=== PATIENT | male | born 1945 | race African-American/Black ===

== ENCOUNTER 2017-10-15 21:14 | Observation (INO) | payer MEDICARE, MEDICAID ==
--- NOTE | 2017-10-15 21:54 | CT ---
NONCONTRAST CT HEAD 10/15/17 HISTORY: Slurred speech. COMPARISON: 02/03/17 FINDINGS: Again noted is stable area of encephalomalacia in the left frontal lobe, left parieto-occipital lobe, and left deep white matter near the vertex likely related to remote areas of infarction. Again noted is the low density area within the right lentiform nucleus likely related to remote lacunar infarcti on. Small remote infarctions are also again seen within the left cerebellar hemisphere. There is stable chronic small vessel ischemic changes and cerebral volume loss. There is no evidence of an acute cortical infarction, hemorrhage, mass effect, or midline shift. There is no evidence of h ydrocephalus. There does appear to be mild ex vacuo dilatation of the body and occipital horn as well as anterior horn of the left lateral ventricle due to the remote areas of infarction in the left cer ebral hemisphere. No intraparenchymal or extra-axial hemorrhage is seen. There is no mass effect or midline shift. Ther e has been no interval change compared to the prior exam. IMPRESSION: 1. No acute intracranial abnormalities demonstrated. 2. Evidence of multiple prior infarcts as described above. CT scan of the head is stable from th e prior exam. 3. Above findings discussed with Dr. Cortes in the Emergency Department on 10/15/17 at 2122 hour s. POS: [facility]
[2017-10-15 21:59] LABS: PTT 28.7 SEC (22.9-36.1); Prothrombin Time 13.5 SEC (12.0-14.7)
[2017-10-15 22:01] LABS: #Basophils 0.1 thou/uL (0.0-0.2); #Eosinphils 0.3 thou/uL (0.0-0.7); #Lymphocytes 1.8 thou/uL (1.20-3.40); #Monocytes 0.6 thou/uL (0.11-0.59); #Neutrophils 2.5 thou/uL (1.40-6.50); %Eosinophils 5.7 % (0.0-10.0); %Lymphocytes 34.6 % (21.0-51.0); %Monocytes 10.8 % (0.0-10.0); %Neutrophils 47.9 % (42.0-75.0); Hemoglobin 14.8 g/dL (14.0-18.0); Mean Corpuscular HGB CONC 32.1 g/dL (32.0-36.0); Mean Corpuscular Hemoglobin 31.9 pg (27.0-31.0); Mean Corpuscular Volume 99.3 fl (80.0-94.0); Mean Platelet Volume 8.3 fL (7.4-10.4); Platelet Count 185 thou/uL (130-400); RBC Distribution Width 11.1 % (11.5-14.5); Red Blood Cell (RBC) Count 4.64 mill/uL (4.70-6.10); White Blood Cell (WBC) Count 5.1 thou/uL (4.8-10.8)
[2017-10-15 22:14] LABS: ALT (SGPT) Less than 7 U/L (8-55); AST (SGOT) 13 U/L (5-34); Albumin 3.5 g/dL (3.4-4.8); Alkaline Phosphatase 110 U/L (40-150); Anion Gap 12 mmol/L (10-20); BUN (Urea Nitrogen) 15 mg/dL (8.4-25.7); Bilirubin, Total 0.4 mg/dL (0.2-1.2); CK (CPK) 104 U/L (30-200); Calc. Creatinine Clearance 0 mL/min (70-130); Calcium 9.9 mg/dL (7.8-10.44); Carbon Dioxide 28 mmol/L (23-31); Chloride 104 mmol/L (98-107); Estimated GFR-MDRD 83; Glucose 74 mg/dL (83-110); Potassium 4.5 mmol/L (3.5-5.1); Protein, Total 7.5 g/dL (5.8-8.1); Sodium 139 mmol/L (136-145)
[2017-10-16 00:35] VITALS: BMI 21.9
[2017-10-16] MEDS ORDERED: Labetalol HCl 100 MG/20 ML VIAL SLOW IVP PRN (00:37)
[2017-10-16] MEDS ORDERED: hydrALAZINE 20 MG/ML VIAL SLOW IVP PRN (00:37)
[2017-10-16 01:20] LABS: Lactic Acid 1.5 mmol/L (0.5-2.2)
[2017-10-16 06:08] LABS: Anion Gap 12 mmol/L (10-20); BUN (Urea Nitrogen) 13 mg/dL (8.4-25.7); Calc. Creatinine Clearance 73 mL/min (70-130); Calcium 8.5 mg/dL (7.8-10.44); Carbon Dioxide 24 mmol/L (23-31); Cardiac Risk 3.6 (Less than 4.5); Chloride 105 mmol/L (98-107); Cholesterol 139 mg/dl (< 200 Desired); Estimated GFR-MDRD Greater than 90; Glucose 84 mg/dL (83-110); HDL Cholesterol 39 mg/dL (>60 Neg Risk); LDL Cholesterol, Calculated 74 mg/dL; Potassium 3.9 mmol/L (3.5-5.1); Sodium 137 mmol/L (136-145); Triglycerides 131 mg/dL (Less than 150)
--- NOTE | 2017-10-16 06:25 | HP-2 ---
DATE OF ADMISSION: 10/16/2017 CODE STATUS: DNI ATTENDING: Sadia Trujillo M.D. RESIDENT: Gali Fermin MD HISTORIAN: Self and daughter. CHIEF COMPLAINT: Slurred speech. HISTORY OF PRESENT ILLNESS: This is a 72-year-old male with past medical history of CVA, MA, COPD, w ho presents to the ED with slurred speech. The woman who stays with him says that a little before 9: 00 p.m., he "was not talking right." The patient's daughter also reports that he was not feeling rig ht at that time either. The daughter reports that by the time she saw him in the ED at 11:00 p.m., bonnie arthur was talking like himself. Although, he did appear sleepier than usual to her. He reports that all he remembers is lying down on the couch and the next thing he remembers is being transferred to the ER. He has not had any falls lately. He does report that he has had a bad cold. He denies any rece nt fevers, weakness, numbness, blurry vision, seizures, loss of bowel or bladder control. PAST MEDICAL HISTORY: 1. Cerebrovascular accident. 2. Chronic obstructive pulmonary disease. 3. Myocardial infarction. 4. Congestive heart failure with an ejection fraction of 25%-30%. 5. Seizure with the last one, 1 year ago. PAST SURGICAL HISTORY: None. ALLERGIES: No known drug allergies. MEDICATIONS: 1. Spironolactone 12.5 mg daily. 2. Gabapentin 300 mg b.i.d. 3. Carvedilol 3.125 mg b.i.d. 4. Keppra 500 mg b.i.d. 5. Aspirin 81 mg daily. FAMILY HISTORY: Dad had an MA at an unknown age. SOCIAL HISTORY: Dipped tobacco, quit 3-4 years ago. Denies alcohol or drug use. REVIEW OF SYSTEMS: General: Negative for fever or chills. Positive for fatigue. ENT: Positive fo r rhinorrhea, sore throat. Respiratory: Negative for cough, shortness of breath. Cardiovascular: Negative for chest pain and edema. GI: Negative for nausea, vomiting, abdominal pain. Genitourinar y: Negative for dysuria, polyuria. Skin: Negative for rashes, lesions. Musculoskeletal: Negative for pain or tenderness. Neurologic: Negative for weakness, numbness. PHYSICAL EXAMINATION: VITAL SIGNS: Blood pressure 116/80, pulse 59, respiratory rate 17, temperature 98.0, pulse ox 100% o n room air. Current weight 67.6 kilograms. GENERAL: Drowsy, oriented x2, which is patient's baseline per daughter, in no acute distress, well-n ourished. EYES: PERRLA. Extraocular muscles intact. Conjunctivae within normal limits. ENT: Nasal mucosa and oropharynx within normal limits. Poor dentition. NECK: Supple, no lymphadenopathy, no bruits. CARDIOVASCULAR: Regular rate and rhythm. No murmurs, gallops, 2+ radial and pedal pulses. RESPIRATORY: Normal effort, no retractions, clear to auscultation bilaterally. SKIN: Warm, dry. No cyanosis or lesions. ABDOMEN: Soft, nontender to palpation, normoactive bowel sounds. No mass or distention. EXTREMITIES: No clubbing, cyanosis, or edema. MUSCULOSKELETAL: Structure, tone within normal limits, 5/5 muscle strength. Full range of motion. NEUROLOGICAL: No focal deficits. Sensation within normal limits. Cranial nerves II through XII int act. GCS 15. PSYCHIATRIC: Appropriate. LABORATORY DATA: WBC 5.1, hemoglobin 14.8, hematocrit 46.0, platelets 185. Sodium 139, potassium 4. 5, chloride 104, CO2 28, BUN 13, creatinine 1.06, GFR 83, glucose 74, calcium 9.9, total protein 7.5, albumin 3.5, total bilirubin 0.4, AST 13, ALT less than 7, alkaline phosphatase 110. PT 13.5, INR 1 .0, PTT 28.7. CK 104, CK-MB 2.0, troponin less than 0.01. EKG showed first-degree AV block, left ve ntricular hypertrophy, and ST-T wave changes, predominantly T-wave inversions in the inferior and lat eral leads. He noticed significant change from prior except for some more prominent T-wave inversion in the inferior leads. CT head, no acute abnormality. Evidence of multiple prior infarcts. ASSESSMENT AND PLAN: A 72-year-old male presents with: 1. Transient ischemic attack versus cerebrovascular accident versus seizure. Patient had a negative cerebrovascular accident workup in 01/2017. No need to repeat carotid studies or echo. At this diana e, we will get a brain MRI q.4 neuro checks, aspirin, atorvastatin. Check fasting lipid panel. We w ill check prolactin. Consult the stroke team with PT, OT, and speech. 2. History of seizure disorder. We will continue Keppra. We will check prolactin. The patient cou ld have been postictal, was not really remembering what happened between lying down and being in the ambulance. We will observe. 3. Viral upper respiratory infection. Patient appears drowsy and complaining of upper respiratory s ymptoms. We will treat symptomatically. We will check lactic acid. No white count at this time. 4. Congestive heart failure with an ejection fraction of 25%-30% in 01/2017. We will fluid restrict , continue carvedilol, spironolactone. We will do strict I's and O's and daily weights. 5. Chronic obstructive pulmonary disease, no exacerbation currently. We will give DuoNebs as needed . 6. Chronic kidney disease stage 2, stable. We will monitor. 7. History of myocardial infarction. No chest pain currently. We will continue home medications. 8. History of cerebrovascular accident, past cerebrovascular accident was seen on CT head. We will continue home medications. 9. Deconditioning. The patient walks with a walker per the daughter. We will consult PT, OT. 10. VT prophylaxis. Lovenox. DISPOSITION: Observation on stroke. Symptomatic medication will be provided. History and physical exam as well as management discussed with Dr. Trujillo.
[2017-10-16] MEDS ORDERED: Spironolactone 25 MG TAB PO SCH (08:00)
[2017-10-16] MEDS ORDERED: Enoxaparin Sodium 40 MG/0.4 ML SYRINGE SC SCH (09:00)
[2017-10-16] MEDS ORDERED: Aspirin 81 mg Enteric Coated Tablet PO SCH (09:00)
[2017-10-16] MEDS ORDERED: levETIRAcetam 500 MG TAB PO SCH (09:00)
[2017-10-16] MEDS ORDERED: Gabapentin 300 MG CAP PO SCH (09:00)
--- NOTE | 2017-10-16 09:13 | MRI ---
MRI BRAIN NONCONTRAST: HISTORY: CVA. COMPARISON: 02/04/17. FINDINGS: There is no evidence of acute intracranial hemorrhage or infarct. The old large left parietooccipita l infarct is stable. Diffuse cortical atrophy and chronic ischemic small vessel disease are also sim ilar in appearance to the previous exam. There is no mass effect or shift of midline structures. Sm all area of mucosal thickening in the left ethmoid air cells is stable. IMPRESSION: Large old left parietooccipital infarct and other chronic-type findings are stable. No acute intracr anial abnormalities are demonstrated. POS: [facility]
[2017-10-16] MEDS: Carvedilol 3.125 MG TAB PO SCH ×2 (09:22→17:50)
[2017-10-16 13:35] LABS: Bilirubin Negative (Negative); Blood, Urine Negative (Negative); Clarity CLEAR (Clear); Glucose, Urine (Dipstick) Negative (Negative); Leukocyte Negative (Negative); Nitrite Negative (Negative); Protein, Urine (Dipstick) Negative (Neg-Trace); Specific Gravity, Urine 1.018 (1.002-1.036); pH, Urine 6.5 (5.0-9.0)
[2017-10-16 13:37] LABS: Bacteria/HPF None Seen HPF (None Seen); Hyaline Casts/LPF 0-3 HYALINE CAST LPF (0-3 Hyaline); Squamous Epithelial None Seen HPF (0-3); WBC/HPF 0-3 HPF (0-3)
[2017-10-16 16:20] VITALS: BP 135/73; TEMP 98.8
[2017-10-16] MEDS ORDERED: Atorvastatin Calcium 40 MG TAB PO SCH (21:00)
--- NOTE | 2017-10-17 11:08 | PDOC.EVN ---
Event Note - Event Note Event Note: I personally evaluated the patient and discussed the management with Dr. Fermin on 10/16/17. I agree with the history, exam, assessment and plan as documented. Briefly, this is a 72 yo male with h/o CVA, COPD, seizure d/o and sCHF with EF 20-25% presented with episode of slurred speech and lethargy. Denies any fever/ chills. Denies any MOSHER, visual disturbances. Denies any focal weakness. Denies any bowel/bladder incontinence. Family reports no seizure like activity. On presentation to ER, symptoms had resolved. Patient denies any currently complaints. See resident note for details of PMH/PSH/Meds/All/SH PE: Afebrile BP 116/80 P59 RR 17 Lungs- CTA b/l CV- RRR, no murmur Abd- soft/nt/nd Neuro- CN 2-12 grossly intact; strength 5/5 b/l; light touch intact; speech clear Ext: no edema Labs- CT brain- no acute abnormality EKG- NSR, LVH, T wave inversion inferior and lateral leads- no change from prior EKG Trop I negative Prolactin- normal A/P: 1) Transient slurred speech - will obtain MRI - continue ASA - Possible d/c later today. 2) H/o CVA - had carotid dopplers and echo recently which were normal - continue to monitor
--- NOTE | 2017-11-06 11:07 | DIS-2 ---
DATE OF ADMISSION: 10/15/2017 DATE OF DISCHARGE: 10/16/2017 CO-SIGNER: Dr. Sadia Trujillo. RESIDENT PHYSICIAN: Dr. Riley Abrams. ADMITTING ATTENDING: Dr. Sadia Trujillo. DISCHARGE ATTENDING: Dr. Sadia Trujillo. CONSULTS: None. PROCEDURES: 1. Brain CT done on 10/15/2017 showed no acute intracranial abnormalities. Evidence of multiple bairon or infarcts. CT scan of the head is stable from prior exam. 2. Brain MRI done on 10/16/2017 showed a large old left parietal occipital infarct and the other chr onic type findings, very stable. No acute intracranial abnormalities demonstrated. PRIMARY DIAGNOSIS: Syncope. SECONDARY DIAGNOSES: 1. History of cerebrovascular accident. 2. Seizure disorder. 3. Hypertension. 4. Cardiomyopathy. DISCHARGE MEDICATIONS: 1. Tylenol 500 mg p.o. q.4 hours. 2. Aspirin 325 mg daily. 3. Atorvastatin 80 mg p.o. at bedtime. 4. Coreg 3.125 mg p.o. b.i.d. 5. Gabapentin 300 mg p.o. b.i.d. 6. Keppra 500 mg p.o. b.i.d. 7. Lisinopril 20 mg p.o. b.i.d. 8. Spironolactone 12.5 mg p.o. daily. DISCONTINUED MEDICATIONS: None. HISTORY OF PRESENT ILLNESS AND HOSPITAL COURSE: The patient is a 72-year-old male with a past histor y of CVA, CO, COPD, who came to the ER with slurred speech. A retail worker noted before admission and t he patient was not talking right in between the hours of 9 p.m. when the symptoms began about the diana e he arrived in the ED at 11:00 p.m., the symptoms had resolved. He denied any recent fevers, weakne ss, numbness, blurry vision, seizures, loss of bowel or bladder control. Overall, the patient was ad mitted for possible syncopal episode versus TIA. A workup was found to be negative and the patient w as discharged home with instruction to follow up with the PCP provider. DISPOSITION: Patient left the hospital in stable condition. DISCHARGE INSTRUCTIONS: 1. Location: Home. 2. Diet: Heart healthy. 3. Activity: ad nany. 4. Followup: Follow up with primary care provider in 7-10 days following discharge.
--- NOTE | 2017-11-08 17:34 | EKG ---
Test Reason : Blood Pressure : / mmHG Vent. Rate : 068 BPM Atrial Rate : 068 BPM P-R Int : 224 ms QRS Dur : 092 ms QT Int : 418 ms P-R-T Axes : 097 -54 -46 degrees QTc Int : 444 ms Sinus rhythm with 1st degree A-V block Left axis deviation Voltage criteria for left ventricular hypertrophy Abnormal ECG Confirmed by EDIE ORO ([id number]), design editor JAYLON HODGES ([id number]) on 11/08/2017 5:33:33 PM Referred By: Confirmed By:EDIE ORO
== END 2017-10-16 18:23 | disposition home or self-care (01) ==
LOC: ERS 21:14 → 2SE 10-16 00:01
PROVIDERS: ADMIT Emergency Medicine; ATTEND Emergency Medicine
DX: R47.81 Slurred speech (principal); J44.9 Chronic obstructive pulmonary disease, unspecified; I25.2 Old myocardial infarction; I50.9 Heart failure, unspecified; G40.909 Epilepsy, unspecified, not intractable, without status epilepticus; J06.9 Acute upper respiratory infection, unspecified; N18.2 Chronic kidney disease, stage 2 (mild); R53.81 Other malaise; Z79.82 Long term (current) use of aspirin; Z79.899 Other long term (current) drug therapy; Z87.891 Personal history of nicotine dependence; Z86.73 Personal history of transient ischemic attack (TIA), and cerebral infarction without residual deficits
CPT/HCPCS: 70450; 70551; 80048; 80053; 80061; 80177; 81001; 82550; 82553; 82962; 83605; 84146; 84484; 85025; 85610; 85730; 93005; 96372; 97116; 97139 ×3; 97530; 99285; G0378; G8978; G8979; G8987; G8988; 36415; 36416; G8996-GN-CI; G8997-GN-CI; J1650

== ENCOUNTER 2019-01-08 18:15 | Observation (INO) | payer MEDICARE, MEDICAID ==
--- NOTE | 2019-01-08 18:57 | CT ---
CT head noncontrast HISTORY: Seizure. Syncope. COMPARISON: 10/15/2017. FINDINGS: There is no evidence of acute intracranial hemorrhage or infarct. Old left TOP STEEP TENDER infarct. Dif fuse cortical atrophy and chronic ischemic small vessel disease. Prominent calcification throughout the arterial structures. No mass effect or shift of midline structures. IMPRESSION: Chronic type findings are stable. No acute intracranial abnormalities are demonstrated.
--- NOTE | 2019-01-08 18:58 | RAD ---
Chest one view HISTORY: Dyspnea. COMPARISON: 02/14/2017. FINDINGS: Cardiac silhouette is Identified and enlarged. Pulmonary vasculature upper limits of normal. Hazy opacity over each base on this semiupright portable exam with blunting of each costophrenic angle. No lobar consolidation or evidence of pneumothorax. flight simulator teacher leads overlie the chest. IMPRESSION: Cardiomegaly. Small bilateral pleural effusions.
[2019-01-08 19:17] LABS: #Eosinphils 0.2 thou/uL (0.0-0.7); #Lymphocytes 1.7 thou/uL (1.20-3.40); #Monocytes 0.6 thou/uL (0.11-0.59); #Neutrophils 2.1 thou/uL (1.40-6.50); %Basophils 0.2 % (0.0-1.0); %Eosinophils 4.8 % (0.0-10.0); %Lymphocytes 36.3 % (21.0-51.0); %Monocytes 13.5 % (0.0-10.0); %Neutrophils 45.2 % (42.0-75.0); Hemoglobin 12.9 g/dL (14.0-18.0); Mean Corpuscular Hemoglobin 31.6 pg (27.0-31.0); Mean Corpuscular Volume 98.8 fL (78.0-98.0); Mean Platelet Volume 8.5 fL (7.4-10.4); Platelet Count 157 thou/uL (130-400); RBC Distribution Width 11.8 % (11.5-14.5); Red Blood Cell (RBC) Count 4.07 mill/uL (4.70-6.10); White Blood Cell (WBC) Count 4.6 thou/uL (4.8-10.8)
[2019-01-08 19:32] LABS: ALT (SGPT) 8 U/L (8-55); AST (SGOT) 14 U/L (5-34); Albumin 3.5 g/dL (3.4-4.8); Alkaline Phosphatase 96 U/L (40-150); Anion Gap 10 mmol/L (10-20); BUN (Urea Nitrogen) 14 mg/dL (8.4-25.7); Bilirubin, Total 0.6 mg/dL (0.2-1.2); Calc. Creatinine Clearance 0 mL/min (70-130); Calcium 8.7 mg/dL (7.8-10.44); Carbon Dioxide 27 mmol/L (23-31); Chloride 106 mmol/L (98-107); Estimated GFR-MDRD 88; Glucose 74 mg/dL (83-110); Lipase 23 U/L (8-78); Potassium 4.4 mmol/L (3.5-5.1); Protein, Total 7.5 g/dL (5.8-8.1); Sodium 139 mmol/L (136-145)
[2019-01-08 23:18] LABS: Troponin I Less than 0.010 ng/mL (< 0.028)
[2019-01-08 23:31] VITALS: BMI 21.4
[2019-01-09] MEDS ORDERED: Acetaminophen 325 MG TAB PO PRN (00:43)
[2019-01-09] MEDS ORDERED: PROVENTIL INHALER 6.7 G (200 INHALATIONS) INH PRN (00:44)
[2019-01-09] MEDS ORDERED: traMADol HCl 50 MG TAB PO PRN (00:44)
[2019-01-09] MEDS ORDERED: Aspirin 81 mg Enteric Coated Tablet PO SCH ×2 (01:15→09:00)
[2019-01-09 01:52] LABS: Troponin I Less than 0.010 ng/mL (< 0.028)
[2019-01-09 02:31] LABS: Bilirubin Negative (Negative); Blood, Urine Negative (Negative); Clarity CLEAR (Clear); Glucose, Urine (Dipstick) Negative (Negative); Leukocyte Negative (Negative); Nitrite Negative (Negative); Protein, Urine (Dipstick) Negative (Neg-Trace); Specific Gravity, Urine 1.018 (1.002-1.036); pH, Urine 7.5 (5.0-9.0)
--- NOTE | 2019-01-09 02:59 | HP ---
CHIEF COMPLAINT: Altered mental status. HISTORY OF PRESENT ILLNESS: This patient is a 73-year-old male who presented via the emergency department. The patient himself states he does not really remember anything that happened and his significant other with whom he lives is no longer present in the emergency department. His significant other indicated that they were eating and he became somnolent and dropped food on the floor, and EMS was called and they reported that the patient was in "postictal state." He is apparently alert and oriented x2. The nurse on the floor here indicates that they have spoken to the patient's daughter who says that he is basically at his baseline presently. The patient believes he is at his normal baseline as well. He has no specific complaints presently. Of note, the patient has history of known seizure disorder. REVIEW OF SYSTEMS: The patient denies having any illness type symptoms. No fevers, chills, or significant changes in his bowel or bladder, habits, eating habits, changes in weight, etc. All other systems reviewed. All pertinent positives and negatives noted in history of present illness. PAST MEDICAL HISTORY: Notable for prior CVA involving the right thalamus, posterior limb of the internal capsule, history of a cardiomyopathy with an echocardiogram in 12/2016 revealing an EF of 35% to 40% percent, but subsequent in 01/2017, which revealed an ejection fraction of 25% to 30% with severely depressed left ventricular function, severe aortic regurgitation, and severe mitral regurgitation. This patient has been admitted several times with episodes similar to today's with repeat MRIs of the brain showing no new findings. He has had a history of an NC, history of congestive heart failure, and history of a seizure disorder. The patient does not know when his last seizure episode was. His last admission here for something similar was in 09/2017. PAST SURGICAL HISTORY: None. FAMILY HISTORY: The patient reports that his father had sudden in his presence when he was young. Records indicate that his father had an NC, but it sounds like he is not certainly sure of that. SOCIAL HISTORY: The patient has a history of using split tobacco, but quit several years ago. No history of alcohol or drugs. He is not , but he does have a significant other with whom he lives. He is full code. ALLERGIES: NONE. HOME MEDICATIONS: 1. Aldactone 25 daily. 2. Tramadol 50 mg b.i.d. 3. Atorvastatin 80 mg daily. 4. ProAir HFA two puffs q.6 hours p.r.n. 5. Keppra 500 mg b.i.d. 6. Coreg 6.25 b.i.d. 7. Neurontin 300 mg p.o. b.i.d. PHYSICAL EXAMINATION: VITAL SIGNS: In the emergency department; vital signs revealed BP 156/73, pulse 57, respirations 17, O2 saturation 99% on room air. GENERAL APPEARANCE: Age-appropriate male. He is awake, alert. He is not overly-talkative, but pleasant. HEENT: AVIS. He has no OP lesions. Very poor dentition with multiple carious and broken teeth and many missing teeth. NECK: Supple and symmetric. HEART: Regular without murmurs appreciable. LUNGS: Clear with no wheezes or rales. ABDOMEN: Soft, nontender, and nondistended. Positive bowel sounds. No masses. No organomegaly. EXTREMITIES: No cyanosis, clubbing, or edema. SKIN: Warm and dry. NEUROLOGIC: The patient appears to be slightly slow in his speech, but appropriate, pleasant, and does not have any focal deficits. LABORATORY DATA: White count 4.6, hemoglobin 12.9, platelets 157. Sodium 139, potassium 4.4, chloride 106, BUN 14, creatinine is 1.0, glucose 74, calcium 8.7. LFTs normal. Lipase 23. TSH 0.726. Chest x-ray shows cardiomegaly with small bilateral pleural effusions. 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 No mass effect or shift of midline structures are notable. IMPRESSION AND PLAN: 1. Altered mental status. This patient is challenging and in that, I have no specific eyewitness history or eyewitness account to go by the moment. I may need to work further on that. However, the history appears to be relatively straightforward. The patient has had several prior admissions with similar type symptoms. The differential in this case includes seizure activity with a postictal phase, which is probably most likely or TIA or potentially symptomatic bradycardia as he has had some heart rate dropping down into the 40s on several occasions while he has been here in the hospital. We will continue with telemetry and serial troponins and depending on his clinical course, we may need to reassess the carotid arteries, and I do not believe we need to repeat another MRI of the brain at this time. 2. Cardiomyopathy. The patient had a severe cardiomyopathy noted a couple of years ago. Oddly, he had two echocardiograms within five weeks which had significantly different findings. The first revealed EF of 35-40% without significant valvular disease. The subsequent showed EF of 25% to 30% with severe MR and severe aortic insufficiency. We will repeat the echocardiogram now. If his EF is that low, he certainly may need to be considered for a LifeVest. 3. Cerebral atherosclerosis found on the CT scan. The patient was on an aspirin the last time he was admitted to this facility, but indicates he is not taking any now. We will ensure that he is on aspirin now. 4. History of seizure disorder. Continue the Keppra and gabapentin. 5. Hyperlipidemia. Continue the atorvastatin. Job ID: [id number]
[2019-01-09 05:56] LABS: Anion Gap 14 mmol/L (10-20); BUN (Urea Nitrogen) 12 mg/dL (8.4-25.7); Calc. Creatinine Clearance 64 mL/min (70-130); Calcium 8.9 mg/dL (7.8-10.44); Carbon Dioxide 21 mmol/L (23-31); Chloride 106 mmol/L (98-107); Estimated GFR-MDRD Greater than 90; Glucose 81 mg/dL (83-110); Potassium 4.8 mmol/L (3.5-5.1); Sodium 136 mmol/L (136-145)
[2019-01-09 06:22] LABS: Band 5 % (5-11); Eosinophils 2 % (0-10); Hemoglobin 13.5 g/dL (14.0-18.0); Lymphocytes 24 % (21-51); MDiff Complete? YES; Mean Corpuscular HGB CONC 32.1 g/dL (32.0-36.0); Mean Corpuscular Hemoglobin 31.6 pg (27.0-31.0); Mean Corpuscular Volume 98.3 fL (78.0-98.0); Mean Platelet Volume 9.7 fL (7.4-10.4); Monocytes 7 % (0-10); Neutrophil 61 % (42-75); Platelet Count 125 thou/uL (130-400); Platelet Morphology Comment Appears Decreased; RBC Distribution Width 11.8 % (11.5-14.5); Reactive Lymphocytes 1 % (0-10); Red Blood Cell (RBC) Count 4.26 mill/uL (4.70-6.10); White Blood Cell (WBC) Count 5.4 thou/uL (4.8-10.8)
[2019-01-09] MEDS ORDERED: Spironolactone 25 MG TAB PO SCH (08:00)
[2019-01-09] MEDS ORDERED: Lisinopril 10 MG TAB PO SCH (09:00)
[2019-01-09] MEDS ORDERED: Atorvastatin Calcium 40 MG TAB PO SCH (09:00)
[2019-01-09] MEDS ORDERED: levETIRAcetam 500 MG TAB PO SCH (09:00)
[2019-01-09] MEDS ORDERED: Gabapentin 300 MG CAP PO SCH (09:00)
[2019-01-09 16:35] VITALS: BP 127/77; TEMP 98.8
--- NOTE | 2019-01-10 02:56 | DIS ---
DATE OF ADMISSION: 01/08/2019 DATE OF DISCHARGE: 01/09/2019 ALLERGIES: NO KNOWN DRUG ALLERGIES. CHIEF COMPLAINT: Altered mental status. FINAL DIAGNOSES: 1. Altered mental status, resolved, likely secondary to seizure activity and postictal state. 2. Sinus bradycardia, which has been asymptomatic this hospitalization. 3. History of cerebrovascular accident with associated seizure disorder. 4. History of dilated cardiomyopathy with recovered ejection fraction, repeat echocardiogram this hospitalization with normal left ventricular systolic function. 5. Mild mitral regurgitation. 6. Hypertension. PROCEDURE PERFORMED: None. LABORATORY RESULTS: White blood cell count 5.4, hemoglobin 13.5, hematocrit 41.9, platelets are 125. Sodium 136, potassium 4.8, chloride 106, carbon dioxide 21, creatinine 0.87, GFR greater than 90, glucose 81, calcium 8.9. Troponin negative x3. Lipase 23. UA was negative. IMAGING RESULTS: Brain CT showed chronic findings which are stable, including chronic ischemic small-vessel disease. No acute intracranial abnormalities were noted. Chest x-ray, cardiomegaly with small bilateral pleural effusions. No lobar consolidation or evidence of pneumothorax. Echocardiogram, normal left ventricular systolic function with EF estimated at 55% to 60%, E-A flow reversal noted suggestive of diastolic dysfunction, mild MR, mild AR, mild TR, mild pulmonic regurgitation. CONSULTATIONS: None. VITAL SIGNS: Blood pressure 127/77, pulse 50s and 60s in sinus, temperature 98.8, respirations 16, o2 saturation 98% on room air. HOSPITAL COURSE: The patient is a 73-year-old male with past medical history significant for history of dilated cardiomyopathy with recovered EF, prior CVA with associated seizure disorder and hypertension, who presented to the hospital with complaints of altered mental status per the caregiver. Apparently, the patient came in from going outside and sat at the table. He became somewhat lethargic and dropped the food that he was holding. EMS was called to the house, and per EMS, the patient was in a "postictal state. His vital signs were significant for sinus bradycardia in the 50s. By the time the patient reached the hospital, he was back to his baseline mental status, alert and oriented x2, which is baseline for the patient. He was admitted for observation. Per telemetry, the patient was noted to be bradycardic in the 50s and 60s, the whole time he was here, he was asymptomatic. He has ambulated around his room without issue. He has not had any further episodes. Repeat echocardiogram performed showed recovered EF and mild MR. During his hospitalization, his carvedilol was stopped, and lisinopril was added for blood pressure control, which he is tolerating well at this time. PHYSICAL EXAMINATION: GENERAL: This patient is an elderly male, resting comfortably in bed, in no acute distress. HEENT: Atraumatic and normocephalic. Eye movements intact. NECK: Supple. No lymphadenopathy. No carotid bruits. RESPIRATORY: Regular respiratory rate and pattern, overall clear to auscultation bilaterally. CV: S1 and S2. Regular rhythm, mildly bradycardic. No appreciable murmurs, rubs, or gallops. GI: Soft, nontender, normal bowel sounds. PERIPHERAL VASCULAR: No lower extremity pitting edema. +2 DP pulses bilaterally. MUSCULOSKELETAL: No joint effusion or swelling. NEUROLOGIC: He is oriented to person, place, and time for me upon my interview today. His neuro exam shows cranial nerves 2 through 12 intact. The patient is nonfocal. CONDITION AT DISCHARGE: Stable. DISCHARGE MEDICATIONS: 1. Albuterol p.r.n. inhaler. 2. Atorvastatin 80 mg at bedtime. 3. Spironolactone 25 mg daily. 4. Tramadol 50 mg p.o. b.i.d. p.r.n. 5. Gabapentin 300 mg capsule daily. 6. Keppra 500 mg tablet p.o. b.i.d. 7. Carvedilol has been discontinued in light of sinus bradycardia. New prescription will be lisinopril 10 mg p.o. daily along with aspirin 81 mg daily. DISCHARGE DISPOSITION: Home with family. PLAN: The patient's daughter is at bedside and care discussed. The patient will stop carvedilol in light of bradycardia if this was possibly contributing to his symptoms. He will follow up with Dr. Larson regarding this. The patient has returned to baseline, and I also discussed the patient is following up with Neurology as an outpatient well given his presenting symptoms. The patient did have a very brief episode and quickly returned back to baseline by his arrival at the hospital. He does have a caregiver and good support at home. Job ID: [id number]
== END 2019-01-09 18:57 | disposition home or self-care (01) ==
LOC: ERS 18:15 → 2SW 21:00
PROVIDERS: ADMIT Internal Medicine; ATTEND Internal Medicine
DX: R41.82 Altered mental status, unspecified (principal); R00.1 Bradycardia, unspecified; G40.909 Epilepsy, unspecified, not intractable, without status epilepticus; E78.5 Hyperlipidemia, unspecified; I67.2 Cerebral atherosclerosis; I42.0 Dilated cardiomyopathy; I10 Essential (primary) hypertension; I34.0 Nonrheumatic mitral (valve) insufficiency; Z79.899 Other long term (current) drug therapy; Z86.73 Personal history of transient ischemic attack (TIA), and cerebral infarction without residual deficits; Z87.891 Personal history of nicotine dependence
CPT/HCPCS: 70450; 71045; 80048; 81003; 82140; 83690; 84484 ×3; 85025; 93005; 93306; 99285; G0378 ×2; 36415; 80053; 84443

== ENCOUNTER 2019-08-04 04:21 | Emergency (ER) | payer MEDICAID, MEDICARE ==
[2019-08-04 05:32] LABS: Hemoglobin 13.1 g/dL (14.0-18.0); Mean Corpuscular HGB CONC 32.5 g/dL (32.0-36.0); Mean Corpuscular Hemoglobin 31.9 pg (27.0-31.0); Mean Corpuscular Volume 98.2 fL (78.0-98.0); Mean Platelet Volume 8.9 fL (7.4-10.4); Platelet Count 120 thou/uL (130-400); RBC Distribution Width 11.4 % (11.5-14.5); Red Blood Cell (RBC) Count 4.09 mill/uL (4.70-6.10); White Blood Cell (WBC) Count 6.1 thou/uL (4.8-10.8)
[2019-08-04 05:49] LABS: ALT (SGPT) 12 U/L (8-55); AST (SGOT) 19 U/L (5-34); Albumin 3.5 g/dL (3.4-4.8); Alkaline Phosphatase 103 U/L (40-110); Anion Gap 13 mmol/L (10-20); BUN (Urea Nitrogen) 12 mg/dL (8.4-25.7); Bilirubin, Total 0.7 mg/dL (0.2-1.2); Calc. Creatinine Clearance 0 mL/min (70-130); Calcium 8.8 mg/dL (7.8-10.44); Carbon Dioxide 21 mmol/L (23-31); Chloride 108 mmol/L (98-107); Estimated GFR-MDRD Greater than 90; Glucose 86 mg/dL (83-110); Potassium 4.2 mmol/L (3.5-5.1); Protein, Total 7.5 g/dL (5.8-8.1); Sodium 138 mmol/L (136-145)
[2019-08-04 05:50] LABS: #Basophils 0.1 thou/uL (0.0-0.2); #Eosinphils 0.2 thou/uL (0.0-0.7); #Lymphocytes 1.6 thou/uL (1.20-3.40); #Monocytes 0.7 thou/uL (0.11-0.59); #Neutrophils 3.4 thou/uL (1.40-6.50); %Basophils 0.8 % (0.0-1.0); %Lymphocytes 27.1 % (21.0-51.0); %Monocytes 11.8 % (0.0-10.0); %Neutrophils 56.2 % (42.0-75.0); Platelet Morphology Comment Appears Decreased
--- NOTE | 2019-08-04 07:23 | CT ---
PRELIMINARY REPORT/[facility]/EMERGENCY AFTER HOURS PROCEDURE: PROCEDURE INFORMATION: Exam: CT Head Without Contrast Exam date and time: 08/04/2019 4:46 AM Clinical history: 74 years old, male; Patient HX: Er 2. 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 EMS reports PT was slow to respond. EMS reports PT has HX of dementia, seizures, stroke, copd and mi. TECHNIQUE: Imaging protocol: Computed tomography of the head without contrast. COMPARISON: No relevant prior studies available. FINDINGS: Brain: There is no acute intracranial hemorrhage, extra axial hematoma, or midline shift. Multiple fo so areas of encephalomalacia left parieto-occipital, bifrontal and small hypodensities along the bilateral caudate nucleus and anterior limb of the right internal capsule are compatible with old inf arcts. Patchy white matter hypodensities are nonspecific but may be seen in small vessel chronic ischemic changes. Ventricles: No ventriculomegaly. Bones/joints: Unremarkable. No acute fracture. Sinuses: Visualized sinuses are unremarkable. No fluid levels. Mastoid air cells: Visualized mastoid air cells are well aerated. Soft tissues: Unremarkable. Vasculature: No evidence of large acute territorial vascular infarction. IMPRESSION: No acute intracranial hemorrhage or mass effect. Thank you for allowing us to participate in the care of your patient. Dictated and Authenticated by: Ginny Viramontes MD 08/04/2019 5:16 AM Central Time ([place] & [place]) FINAL REPORT CT BRAIN WITHOUT CONTRAST: DATE: 08/04/2019. TIME: 4:36 a.m. COMPARISON: 01/08/2019. IMPRESSION: Final report is in agreement with preliminary interpretation provided above, without evidence of acut e intracranial hemorrhage or mass effect. Multifocal remote infarctions both supratentorial and infratentorial are stable in appearance. Transcribed Date/Time: 08/04/2019 7:34 AM
--- NOTE | 2019-08-04 07:30 | RAD ---
Exam: Chest one view HISTORY:Seizure Comparison: 01/08/2019 FINDINGS: Lungs: No masses or consolidation. Cardiac silhouette:Enlarged cardiomediastinal silhouette. Tortuosity and ectasia of the thoracic aort a. Pulmonary vessels: Mild vascular congestion Pleural Spaces: Clear Pneumothorax: None Osseous abnormalities: None of acuity. IMPRESSION: Enlarged cardiomediastinal silhouette with mild vascular congestion. Correlate for eviden ce of CHF
== END 2019-08-04 07:17 | disposition home or self-care (01) ==
LOC: ERS 04:21
DX: R56.9 Unspecified convulsions (principal); I10 Essential (primary) hypertension; I25.2 Old myocardial infarction; Z86.73 Personal history of transient ischemic attack (TIA), and cerebral infarction without residual deficits; Z79.51 Long term (current) use of inhaled steroids; Z79.891 Long term (current) use of opiate analgesic
CPT/HCPCS: 36415; 70450; 71045; 80053; 85025; 93005

== ENCOUNTER 2019-08-04 23:24 | Observation (INO) | payer MEDICARE ==
[2019-08-05 00:08] LABS: #Eosinphils 0.1 thou/uL (0.0-0.7); #Lymphocytes 1.6 thou/uL (1.20-3.40); #Monocytes 0.8 thou/uL (0.11-0.59); #Neutrophils 4.7 thou/uL (1.40-6.50); %Basophils 0.2 % (0.0-1.0); %Eosinophils 1.7 % (0.0-10.0); %Lymphocytes 21.7 % (21.0-51.0); %Monocytes 11.5 % (0.0-10.0); %Neutrophils 64.9 % (42.0-75.0); Hemoglobin 14.4 g/dL (14.0-18.0); Mean Corpuscular HGB CONC 33.5 g/dL (32.0-36.0); Mean Corpuscular Hemoglobin 32.6 pg (27.0-31.0); Mean Corpuscular Volume 97.4 fL (78.0-98.0); Mean Platelet Volume 8.3 fL (7.4-10.4); Platelet Count 160 thou/uL (130-400); RBC Distribution Width 11.5 % (11.5-14.5); Red Blood Cell (RBC) Count 4.41 mill/uL (4.70-6.10); White Blood Cell (WBC) Count 7.2 thou/uL (4.8-10.8)
[2019-08-05 00:34] LABS: ALT (SGPT) 14 U/L (8-55); AST (SGOT) 18 U/L (5-34); Albumin 3.9 g/dL (3.4-4.8); Alkaline Phosphatase 105 U/L (40-110); Anion Gap 15 mmol/L (10-20); BUN (Urea Nitrogen) 13 mg/dL (8.4-25.7); Bilirubin, Total 0.9 mg/dL (0.2-1.2); Calc. Creatinine Clearance 0 mL/min (70-130); Calcium 9.4 mg/dL (7.8-10.44); Carbon Dioxide 23 mmol/L (23-31); Chloride 105 mmol/L (98-107); Estimated GFR-MDRD 82; Globulin 4.3 g/dL (2.4-3.5); Glucose 102 mg/dL (83-110); Potassium 4.3 mmol/L (3.5-5.1); Protein, Total 8.2 g/dL (5.8-8.1); Sodium 139 mmol/L (136-145)
[2019-08-05 01:12] LABS: Bacteria/HPF None Seen HPF (None Seen); Bilirubin Negative (Negative); Blood, Urine Negative (Negative); Clarity Clear (Clear); Glucose, Urine (Dipstick) Normal (Negative); Leukocyte Negative Leu/uL (Negative); Mucous/LPF Rare LPF (<2+); Nitrite Negative (Negative); Protein, Urine (Dipstick) 30 mg/dL (Neg-Trace); RBC/HPF 0-3 HPF (0-3); Squamous Epithelial None Seen HPF (0-3); WBC/HPF 0-3 HPF (0-3)
[2019-08-05] MEDS ORDERED: levETIRAcetam 500 MG TAB PO SCH ×5 (01:30→21:00)
[2019-08-05 03:03] LABS: Lactic Acid 1.3 mmol/L (0.5-2.2)
[2019-08-05] MEDS ORDERED: Ondansetron PF 4 MG/2 ML Vial IVP PRN ×2 (03:21→07:00)
[2019-08-05] MEDS ORDERED: Ondansetron ODT 4 MG TAB SL PRN (03:21)
[2019-08-05] MEDS ORDERED: Acetaminophen 325 MG TAB PO PRN ×2 (03:21→07:00)
[2019-08-05 04:51] VITALS: BMI 23.1
[2019-08-05] MEDS ORDERED: Calcium Carbonate 500 MG ChewTAB PO PRN (07:00)
[2019-08-05] MEDS ORDERED: Bisacodyl 10 MG SUPP PR PRN (07:00)
[2019-08-05] MEDS ORDERED: Senokot S 8.6-50 MG TAB PO PRN (07:00)
[2019-08-05] MEDS ORDERED: Ondansetron ODT 4 MG TAB PO PRN (07:00)
[2019-08-05] MEDS ORDERED: PROVENTIL INHALER 6.7 G (200 INHALATIONS) INH PRN (07:00)
[2019-08-05] MEDS ORDERED: Loperamide HCl 2 MG CAP PO PRN (07:00)
[2019-08-05] MEDS ORDERED: Diabetic Tussin 200 MG/10 ML UDCUP PO PRN (07:00)
[2019-08-05] MEDS ORDERED: hydrALAZINE 20 MG/ML VIAL SLOW IVP PRN (07:00)
[2019-08-05] MEDS ORDERED: Loratadine 10 MG TAB PO PRN (07:00)
[2019-08-05] MEDS ORDERED: Sodium Chloride 0.65% Nasal 44 ML BOT EA NARE PRN (07:00)
[2019-08-05] MEDS ORDERED: Artificial Tears 18 DROP/0.9 ML EA EYE PRN (07:00)
[2019-08-05] MEDS ORDERED: Cepastat Lozenges 1 LOZ PO PRN (07:00)
[2019-08-05] MEDS ORDERED: Lorazepam 2 MG/ML VIAL SLOW IVP PRN (07:00)
--- NOTE | 2019-08-05 07:59 | CT ---
PRELIMINARY REPORT/[facility]/EMERGENCY AFTER HOURS PROCEDURE: PROCEDURE INFORMATION: Exam: CT Head Without Contrast Exam date and time: 08/05/2019 12:07 AM Clinical history: 74 years old, male; Patient HX: Er 1. M74 with pmh of demensia presented to the ED with a C/O headache. PT denies fall. PT was seen here in the morning for seizure. PT was brought to [facility] ED due to seizure witnessed by family. TECHNIQUE: Imaging protocol: Computed tomography of the head without contrast. COMPARISON: CT Brain WO Con 08/04/2019 4:46 AM FINDINGS: Brain: There is no acute intracranial hemorrhage. No midline shift or mass effect. No evidence of lar ge acute territorial vascular infarction. Multiple focal areas of encephalomalacia are redemonstrated . Patchy whitte matter hypodensities are nonspecific but may be seen in small vessel chronic ischemic changes. Ventricles: Stable. Bones/joints: No acute fracture. Sinuses: Visualized sinuses are unremarkable. No fluid levels. Mastoid air cells: Visualized mastoid air cells are well aerated. Soft tissues: Mild right temporal scalp swelling. IMPRESSION: No acute intracranial abnormality detected. Thank you for allowing us to participate in the care of your patient. Dictated and Authenticated by: Ginny Viramontes MD 08/05/2019 12:36 AM Central Time ([place] & [place]) FINAL REPORT HEAD CT WITHOUT CONTRAST: Date: 08/04/19 HISTORY: Dementia. Headache. FINDINGS: Stable volume loss in the left cerebrum. Otherwise, cortical pierre-white matter differentiation is pre served. Stable configuration of the ventricular system. Intact calvarium. Adequate aeration of the si nuses and mastoid air cells. IMPRESSION: No significant interval change. No intracranial process. This report is in agreement with the preliminary report by C[facility]. POS: [facility]
[2019-08-05] MEDS ORDERED: Prevnar 13-Val Conj/PF 0.5 ML SYRINGE IM ONE (09:00)
[2019-08-05] MEDS: Aspirin 81 mg Enteric Coated Tablet PO SCH (09:36)
[2019-08-05] MEDS: Gabapentin 300 MG CAP PO SCH ×2 (09:36→21:07)
[2019-08-05] MEDS: Atorvastatin Calcium 40 MG TAB PO SCH (09:37)
[2019-08-05] MEDS: Lisinopril 10 MG TAB PO SCH (09:37)
[2019-08-05] MEDS: Famotidine 20 MG TAB PO SCH ×2 (09:37→21:07)
--- NOTE | 2019-08-05 12:17 | HP ---
PRIMARY CARE PHYSICIAN: [facility]. REASON FOR ADMISSION: Seizure and altered mental status. HISTORY OF PRESENT ILLNESS: A 74-year-old male who has underlying seizure disorder after CVA, who had seizure at [facility], and subsequently, he was brought to ER. The patient reported headache. The patient has altered mental status, and his baseline status is not known. He is not able to provide any history. In the emergency room, the patient had CT brain, which showed no acute process, but there were multiple focal areas of encephalomalacia from previous stroke. Routine blood tests were unremarkable. The patient was admitted to Stroke Floor for monitoring. He was on Keppra, and his Keppra level is less than 2, so it is unclear whether the patient was taking medication as prescribed or not. Unfortunately, this patient is not probable to provide any more history, and there are no family member present at bedside as well. REVIEW OF SYSTEMS: All review of systems tried to review with the patient, but unable to review at this point because of altered mental status. PAST MEDICAL HISTORY: History of CVA, involving right thalamus, posterior limb of internal capsule; history of cardiomyopathy based on echocardiography in 2017, and subsequent echocardiography showed improvement in EF; the patient has underlying associated severe aortic regurgitation and mitral regurgitation, post-CVA seizure disorder. PAST SURGICAL HISTORY: Reviewed and negative. FAMILY HISTORY: Unable to obtain from the patient at this point because of his altered mental status. PAST PSYCHIATRIC HISTORY: Unable to obtain any previous psychiatric history. SOCIAL HISTORY: It is unclear whether the patient lives at [facility] or not, but he is ex-smoker and no history of tobacco, alcohol, or other illicit drug abuse at this point. ALLERGIES: NO KNOWN DRUG ALLERGIES. CURRENT HOME MEDICATIONS: Unable to verify his home medication, but based on previous hospital record, he is on following medications; 1. ProAir HFA 2 puffs q.6 hourly. 2. Lipitor 80 mg daily. 3. Aldactone 25 mg daily. 4. Tramadol 50 mg b.i.d. p.r.n. 5. Aspirin 81 mg daily. 6. Gabapentin 300 mg p.o. b.i.d. 7. Keppra 500 mg p.o. b.i.d. 8. Lisinopril 10 mg p.o. daily. EMERGENCY ROOM COURSE: The patient was given Keppra 1 g. PHYSICAL EXAMINATION: VITAL SIGNS: On arrival, blood pressure 183/102, pulse 69, respiratory rate 22, temperature 97.6, and saturation 95% on room air. Weight 63 kg. GENERAL: The patient is currently awake, arousable, follows simple command, appears disoriented. HEENT: Normocephalic, atraumatic. Eyes; pupils round, reactive to light. Extraocular muscle intact. ENT, oropharynx within normal limits. Moist mucous membranes. No oral lesion. No pharyngeal erythema. No exudate. NECK: No meningeal signs of irritation. No neck stiffness. No thyromegaly. No carotid bruit. LUNGS: Clear to auscultation without any rhonchi or rales. CARDIAC: S1, S2 regular. Parasternal murmur noted. No gallop. No rub. ABDOMEN: Soft. Bowel sounds present. Nontender. Nondistended. No organomegaly. No mass. No suprapubic tenderness. GENITOURINARY: Unremarkable. EXTREMITIES: Upper extremities, passive movements of all joints are normal. Lower extremities, passive movements of all joints are normal. NEUROLOGIC: Unable to do detailed neurological examination because the patient is not cooperative. SKIN: No skin rash. PSYCHIATRIC: Flat affect. Poor insight. SIGNIFICANT LABORATORY DATA: CBC; WBC 7.2, hemoglobin 14.4, and platelets 160. BMP; sodium 139, potassium 4.3, chloride 105, carbon dioxide 23, BUN 13, creatinine 1.06, calcium 9.4, lactic acid 2.6 and subsequently 1.3. LFT; AST 18, ALT 14, alkaline phosphatase 105, albumin 3.9, magnesium 1.9. Urinalysis unremarkable. Keppra level less than 2. CT brain, based on my review, no acute process. Chest x-ray, based on my review, no acute cardiopulmonary process. Mild pulmonary vascular congestion noted. ASSESSMENT AND PLAN: 1. Acute encephalopathy, likely related with postictal phase versus underlying dementia, baseline status not known. CT brain did not show any acute process, but he does have multiple old infarcts with encephalomalacia. Routine blood test is unremarkable. 2. Seizure disorder after cerebrovascular accident. The patient was on Keppra, but his Keppra level is less than 2, uncertain whether he was taking medication or not. Neurology has been consulted. We will continue with Keppra 500 mg b.i.d. or we may need to increase the dose to 1000 mg p.o. b.i.d. 3. History of cerebrovascular accident. Continue aspirin, statin, and blood pressure medication as above. 4. History of cardiomyopathy. Most recent echocardiography showed improvement in the ejection fraction. As per previous echo, he had low ejection fraction, but now last echo showed improvement in his ejection fraction. Continue management. The patient is euvolemic. 5. Hypertension. Continue lisinopril. We will hold on Aldactone therapy. 6. Dyslipidemia. Continue Lipitor. 7. Physical deconditioning. The patient will need PT and OT evaluation to assess his baseline status. 8. Deep venous thrombosis prophylaxis, SCD boots. 9. Gastrointestinal prophylaxis. Pepcid 20 mg p.o. b.i.d. CODE STATUS: The patient will be kept as a full code. DISPOSITION PLAN: We will observe him today. If no neurological event happens and remains neurologically stable, then we will consider discharging him tomorrow. Job ID: [id number]
--- NOTE | 2019-08-05 19:56 | CON ---
DATE OF CONSULTATION: 08/05/2019 CONSULTING PHYSICIAN: Hospitalist Service. IMPRESSION: 1. Recurrent seizure. 2. Old left parietal stroke as a seizure focus. 3. Subtherapeutic Keppra level. PLAN: 1. Increase Keppra to 750 mg twice a day. 2. The patient can be discharged to the senior living. HISTORY OF PRESENT ILLNESS: Mr. Polanco is a 74-year-old gentleman who lives at [facility]. He apparently had a witnessed seizure. He is brought into the emergency room for evaluation. He had a CT scan of the brain which showed chronic ischemic changes including a left parietal infarct. Prior studies in the past included a normal ejection fraction of 55% to 60%. His carotid ultrasound was clear. His lab work was otherwise unremarkable. His medication list included Keppra 500 mg twice a day. His serum level was less than 2. He also presented with hypertension. PAST MEDICAL HISTORY: Hypertension, stroke, seizure disorder, hyperlipidemia. ALLERGIES: NONE REPORTED. SOCIAL HISTORY: No tobacco or alcohol. FAMILY HISTORY: Noncontributory. REVIEW OF SYSTEMS: Ten-system review of systems is otherwise negative. PHYSICAL EXAMINATION: GENERAL: He is a thin elderly man, lying in bed, in no acute distress. VITAL SIGNS: Blood pressure 179/103, pulse 56, respirations 17, he has been afebrile. HEENT: Pupils, equal. Conjunctivae, clear. Oropharynx, clear. Cranium, normocephalic and atraumatic. NECK: Supple. EXTREMITIES: No cyanosis or edema. NEUROLOGIC: He was alert and cooperative. He followed commands appropriately. His speech was fluent and clear. He was not the best historian. Cranial nerves appeared to be intact. He has no facial asymmetry appreciated. Motor exam showed equal strength though he seem to have a little difficulty raising the right arm as compared to the left. Gait was not tested, but he reportedly can walk independently. Sensation was intact to touch. No abnormal movements were seen. SUMMARY: Elderly gentleman with a prior stroke and recurrent seizure. He is back to his baseline. Blood pressure needs to be addressed. I have increased his Keppra dose. I would be happy to follow up with him as an outpatient. Job ID: [id number]
[2019-08-05] MEDS: FLU VACC TS2019-20(65YR UP)/PF 180 MCG/0.5 ML SYRINGE IM ONE (21:07)
[2019-08-05] MEDS: levETIRAcetam 500 mg/5 ml Oral Solution PO SCH (21:13)
[2019-08-06] MEDS: Gabapentin 300 MG CAP PO SCH ×2 (10:00→20:05)
[2019-08-06] MEDS: Atorvastatin Calcium 40 MG TAB PO SCH (10:00)
[2019-08-06] MEDS: Lisinopril 10 MG TAB PO SCH (10:01)
[2019-08-06] MEDS: Famotidine 20 MG TAB PO SCH ×2 (10:01→20:05)
[2019-08-06] MEDS: Aspirin 81 mg Enteric Coated Tablet PO SCH (10:01)
[2019-08-06] MEDS: levETIRAcetam 500 mg/5 ml Oral Solution PO SCH ×2 (10:01→20:05)
--- NOTE | 2019-08-06 10:08 | PDOC.HOSPP ---
- Subjective Encounter Date: 08/06/19 Encounter Time: 07:40 Subjective: Patient seen and examined. No new complaints. No overnight events - Objective Vital Signs & Weight: Vital Signs (12 hours) Temp Pulse Resp BP BP BP Pulse Ox 08/06/19 10:01 160/87 H 08/06/19 07:54 97.9 F 53 L 16 160/87 H 96 08/06/19 07:39 99 08/06/19 04:16 97.9 F 50 L 14 150/92 H 99 08/05/19 23:54 98.3 F 53 L 16 171/95 H 98 Weight Admit Weight 147 lb 11.2 oz Weight 147 lb 11.2 oz I&O: 08/05/19 08/06/19 08/07/19 06:59 06:59 06:59 Intake Total 50 1633 Balance 50 1633 Result Diagrams: 08/04/19 23:58 08/04/19 23:58 EKG Reviewed by me: Yes Hospitalist ROS - Review of Systems ROS unobtainable: due to mental status - Medication Medications: Active Medications Generic Name Dose Route Start Last Admin Trade Name Freq PRN Reason Stop Dose Admin Acetaminophen 650 mg 08/05/19 07:00 08/06/19 10:00 Tylenol PO 650 mg Q4H PRN Administration Headache/Fever/Mild Pain (1-3) Aspirin 81 mg 08/05/19 09:00 08/06/19 10:01 Ecotrin PO 81 mg DAILY SOL Administration Atorvastatin Calcium 80 mg 08/05/19 09:00 08/06/19 10:00 Lipitor PO 80 mg DAILY SOL Administration Famotidine 20 mg 08/05/19 09:00 08/06/19 10:01 Pepcid PO 20 mg BID SOL Administration Gabapentin 300 mg 08/05/19 09:00 08/06/19 10:00 Neurontin PO 300 mg BID SOL Administration Levetiracetam 750 mg 08/05/19 21:00 08/06/19 10:01 Keppra Oral Solution PO 750 mg BID SOL Administration Lisinopril 10 mg 08/05/19 09:00 08/06/19 10:01 Zestril PO 10 mg DAILY SOL Administration - Exam General Appearance: NAD, awake alert Eye: PERRL, anicteric sclera ENT: normocephalic atraumatic, no oropharyngeal lesions Neck: supple, symmetric, no JVD, no thyromegaly Heart: RRR, no murmur, no gallops, no rubs, normal peripheral pulses Respiratory: CTAB, no wheezes, no rales, no ronchi Gastrointestinal: soft, non-tender, non-distended, normal bowel sounds Extremities: no cyanosis, no clubbing, no edema Skin: normal turgor, no lesions Musculoskeletal: normal tone, normal strength Psychiatric: normal affect, normal behavior Hosp A/P (1) H/O: CVA (cerebrovascular accident) Code(s): Z86.73 - PRSNL HX OF TIA (TIA), AND CEREB INFRC W/O RESID DEFICITS Status: Chronic (2) HTN (hypertension) Code(s): I10 - ESSENTIAL (PRIMARY) HYPERTENSION Status: Chronic Qualifiers: (3) Post-ictal confusion Code(s): F05 - DELIRIUM DUE TO KNOWN PHYSIOLOGICAL CONDITION Status: Resolved (4) Seizure Code(s): R56.9 - UNSPECIFIED CONVULSIONS Status: Resolved - Plan old records reviewed/req, social work supervisor 08/06/19- stable for discharge with increased dose of keppra as per neurology, see discharge rosa maria, resume home health
--- NOTE | 2019-08-06 11:03 | DIS ---
DATE OF ADMISSION: 08/05/2019 DATE OF DISCHARGE: 08/06/2019 PRIMARY CARE PHYSICIAN: [facility] Call admission. DISCHARGE DISPOSITION: Home with home health. PRIMARY DISCHARGE DIAGNOSES: 1. Seizure. 2. Postictal encephalopathy. SECONDARY DISCHARGE DIAGNOSES: Hypertension, history of cardiomyopathy, history of CVA with residual weakness, and post-CVA seizure disorder. PRIMARY PROCEDURE AND OPERATION: None. RADIOLOGIST INVESTIGATION: CT of brain in the emergency room showed no acute intracranial process. Multiple focal areas of encephalomalacia. SIGNIFICANT LABORATORY DATA: WBC 7.2, hemoglobin 14.4, and platelets 160. Sodium 139, potassium 4.3, BUN 13, creatinine 1.06, calcium 9.4. Lactic acid 1.3. AST 18, ALT 14, alkaline phosphatase 105. Albumin 3.9, magnesium 1.9. Urinalysis unremarkable. Keppra level less than 2. DISCHARGE MEDICATIONS: Keppra 750 mg p.o. b.i.d. (dose increased). Continue following medications: 1. ProAir HFA 2 puffs q.6 hourly p.r.n. 2. Lipitor 80 mg at bedtime. 3. Multivitamin 1 tablet daily. 4. Aldactone 25 mg daily. 5. Aspirin 81 mg p.o. daily. 6. Neurontin 300 mg p.o. b.i.d. 7. Lisinopril 10 mg p.o. daily. 8. Imodium p.r.n. basis. CONTRAINDICATION: None. CODE STATUS: Full code. INPATIENT CABLE COVERER: Dr. Paulo Valdivia, neurologist was consulted while in hospital. TEST RESULTS PENDING ON DISCHARGE: None. ALLERGIES: NO KNOWN DRUG ALLERGIES. DISCHARGE PLAN: Posthospital, the patient will be discharged home with home health and follow up with Neurology. HOSPITAL COURSE: This is a 74-year-old male, who has history of CVA with residual weakness as well as history of post-CVA seizure disorder. He was on Keppra, but his Keppra level was less than 2. He was brought to ER for a seizure. He had postictal confusion. The patient required observation to hospital. The patient did not have any further seizure. During this admission, dose of Keppra was increased to 750 mg b.i.d. The patient is up to his baseline level at this point and he will go home with home health. The patient is seen and examined at bedside today. Please see my progress note from today for more detail. Job ID: [id number]
[2019-08-06] MEDS: FLU VACC TS2019-20(65YR UP)/PF 180 MCG/0.5 ML SYRINGE IM ONE (15:08)
[2019-08-06 20:02] VITALS: BP 149/83; TEMP 100
== END 2019-08-06 20:25 ==
LOC: ERS 23:24 → 2SE 08-05 01:55
PROVIDERS: ADMIT Internal Medicine; ATTEND Internal Medicine
DX: I69.398 Other sequelae of cerebral infarction (principal); G40.909 Epilepsy, unspecified, not intractable, without status epilepticus; I10 Essential (primary) hypertension; E78.5 Hyperlipidemia, unspecified; F03.90 Unspecified dementia, unspecified severity, without behavioral disturbance, psychotic disturbance, mood disturbance, and anxiety; Z79.82 Long term (current) use of aspirin; Z79.899 Other long term (current) drug therapy; Z87.891 Personal history of nicotine dependence
CPT/HCPCS: 51701; 70450; 80053; 80177; 83605 ×2; 83735; 85025; 90662; 97116 ×2; 97139 ×4; 97530 ×2; 99285; G0008; G0378 ×2; 36415; 81003; 81015; 90471

== ENCOUNTER 2020-02-25 10:18 | Emergency (ER) | payer MEDICARE ==
[2020-02-25] MEDS ORDERED: levETIRAcetam 1000 MG/100 ML PREMIX BAG ONE (10:43)
[2020-02-25 11:41] LABS: #Eosinphils 0.2 thou/uL (0.0-0.7); #Lymphocytes 1.8 thou/uL (1.20-3.40); #Monocytes 0.5 thou/uL (0.11-0.59); %Basophils 0.3 % (0.0-1.0); %Eosinophils 2.2 % (0.0-10.0); %Lymphocytes 23.6 % (21.0-51.0); %Monocytes 7.1 % (0.0-10.0); %Neutrophils 66.9 % (42.0-75.0); Hemoglobin 15.2 g/dL (14.0-18.0); Mean Corpuscular HGB CONC 31.4 g/dL (32.0-36.0); Mean Corpuscular Volume 98.7 fL (78.0-98.0); Mean Platelet Volume 9.2 fL (7.4-10.4); Platelet Count 142 thou/uL (130-400); RBC Distribution Width 11.8 % (11.5-14.5); Red Blood Cell (RBC) Count 4.91 mill/uL (4.70-6.10); White Blood Cell (WBC) Count 7.5 thou/uL (4.8-10.8)
[2020-02-25 12:07] LABS: ALT (SGPT) 10 U/L (8-55); AST (SGOT) 18 U/L (5-34); Albumin 4.1 g/dL (3.4-4.8); Alkaline Phosphatase 107 U/L (40-110); Anion Gap 16 mmol/L (10-20); BUN (Urea Nitrogen) 14 mg/dL (8.4-25.7); Bilirubin, Total 0.9 mg/dL (0.2-1.2); Calc. Creatinine Clearance 0 mL/min (70-130); Calcium 9.1 mg/dL (7.8-10.44); Carbon Dioxide 20 mmol/L (23-31); Chloride 107 mmol/L (98-107); Estimated GFR-MDRD Greater than 90; Globulin 4.8 g/dL (2.4-3.5); Glucose 72 mg/dL (83-110); Potassium 4.3 mmol/L (3.5-5.1); Protein, Total 8.9 g/dL (5.8-8.1); Sodium 139 mmol/L (136-145)
[2020-02-25 12:34] LABS: Acetaminophen Less than 6.0 mcg/mL (10.0-30.0); Alcohol Less than 10 mg/dL (Less than 10); Salicylate Less than 8.0 mg/dL (15.0-30.0)
--- NOTE | 2020-02-25 13:23 | RAD ---
CHEST 1 VIEW: HISTORY: Injury from a fall. COMPARISON: 08/12/2019. FINDINGS: Minimal cardiomegaly. Old granulomatous disease. No confluent pneumonia, overt edema, or pleural ef fusion. IMPRESSION: No significant acute intrathoracic disease. Old granulomatous disease. Atherosclerosis of the aorta . Stable from prior study. POS: [facility]
--- NOTE | 2020-02-25 13:30 | CT ---
CT OF THE BRAIN WITHOUT CONTRAST: 02/25/20 COMPARISON: 08/05/19. HISTORY: Seizure and confusion with altered mental status. TECHNIQUE: Multiple contiguous axial images were obtained in a CT of the brain without contrast. FINDINGS: There are scattered areas of encephalomalacia in the left cerebral hemisphere which are stable. There are scattered hypodensities in the subcortical and periventricular white matter, likely secondary to small vessel ischemic disease. No new large confluent infarction is seen. There is no evidence of hy drocephalus, intracranial hemorrhage or extra-axial fluid collections. The calvarium and overlying soft tissues are unremarkable. The visualized paranasal sinuses and masto id air cells are well aerated. IMPRESSION: No evidence of acute intracranial abnormality. POS: [facility]
[2020-02-25 14:17] LABS: Bacteria/HPF None Seen HPF (None Seen); Bilirubin Negative (Negative); Blood, Urine Negative (Negative); Clarity Clear (Clear); Glucose, Urine (Dipstick) Normal (Negative); Leukocyte Negative Leu/uL (Negative); Nitrite Negative (Negative); Protein, Urine (Dipstick) 30 mg/dL (Neg-Trace); RBC/HPF 0-3 HPF (0-3); Squamous Epithelial None Seen HPF (0-3); Urobilinogen 6 mg/dL (Less than 2); WBC/HPF 0-3 HPF (0-3)
[2020-02-25 14:29] LABS: Amphetamine Not Detected (NotDetected); Barbiturates Screen Not Detected (NotDetected); Benzodiazepine Screen Not Detected (NotDetected); Cocaine Metabolite Screen Not Detected (NotDetected); Medtox Control Line Valid? VALID (VALID); Medtox Reader # READER 1; Methadone Not Detected (NotDetected); Methamphetamine Not Detected (NotDetected); Opiate Screen Not Detected (NotDetected); Oxycodone Screen Not Detected (NotDetected); Phencyclidine (PCP) Not Detected (NotDetected); THC/Cannabinoid Screen Not Detected (NotDetected); Tricyclic Screen Not Detected (NotDetected)
[2020-02-27 05:18] LABS: Base Excess-Venous 1.6 mmol/L (-2.0 to 3.0); Bicarbonate (HCO3v) 27.8 mmol/L (22.0-28.0); Calcium, Ionized 1.14 mmol/L (See Comments:); Chloride 105 mmol/L (98-107); Hemoglobin - Calc 15.7 g/dL (14.0-18.0); Potassium 4.3 mmol/L (3.5-5.1); Sodium 143 mmol/L (138-145); T. Carbon Dioxide 29.2 mmol/L (22.0-28.0); vO2 Saturation-calc 96.3 % (60.0-85.0)
== END 2020-02-25 19:54 ==
LOC: ERS 10:18
DX: R56.9 Unspecified convulsions (principal); I10 Essential (primary) hypertension; Z86.73 Personal history of transient ischemic attack (TIA), and cerebral infarction without residual deficits; J44.9 Chronic obstructive pulmonary disease, unspecified; I25.2 Old myocardial infarction; F03.90 Unspecified dementia, unspecified severity, without behavioral disturbance, psychotic disturbance, mood disturbance, and anxiety; Z79.51 Long term (current) use of inhaled steroids; Z79.899 Other long term (current) drug therapy; W19.XXXA Unspecified fall, initial encounter
CPT/HCPCS: 51701; 70450; 71045; 80053; 80306; 80307; 81003; 81015; 82330; 82435; 82803; 84132; 84295; 84484; 85014; 85025; 87086; 93005; 96365; J1953

== ENCOUNTER 2020-05-23 18:28 | Emergency (ER) | payer MEDICARE, MEDICAID ==
[2020-05-23] MEDS ORDERED: diphenhydrAMINE 50 MG/ML VIAL ONE (18:48)
[2020-05-23] MEDS ORDERED: Metoclopramide HCl 10 MG/2 ML VIAL ONE (18:48)
[2020-05-23 19:02] LABS: #Eosinphils 0.5 thou/uL (0.0-0.7); #Lymphocytes 1.3 thou/uL (1.20-3.40); #Monocytes 0.5 thou/uL (0.11-0.59); #Neutrophils 2.3 thou/uL (1.40-6.50); %Basophils 0.4 % (0.0-1.0); %Eosinophils 11.6 % (0.0-10.0); %Lymphocytes 27.7 % (21.0-51.0); %Monocytes 11.3 % (0.0-10.0); Hemoglobin 12.8 g/dL (14.0-18.0); Mean Corpuscular HGB CONC 32.3 g/dL (32.0-36.0); Mean Corpuscular Hemoglobin 31.8 pg (27.0-31.0); Mean Corpuscular Volume 98.6 fL (78.0-98.0); Mean Platelet Volume 8.3 fL (7.4-10.4); Platelet Count 167 thou/uL (130-400); Red Blood Cell (RBC) Count 4.03 mill/uL (4.70-6.10); White Blood Cell (WBC) Count 4.7 thou/uL (4.8-10.8)
[2020-05-23 19:23] LABS: ALT (SGPT) 10 U/L (8-55); AST (SGOT) 14 U/L (5-34); Albumin 3.5 g/dL (3.4-4.8); Alkaline Phosphatase 90 U/L (40-110); Anion Gap 9 mmol/L (10-20); BUN (Urea Nitrogen) 11 mg/dL (8.4-25.7); Bilirubin, Total 0.6 mg/dL (0.2-1.2); CK (CPK) 160 U/L (30-200); Calc. Creatinine Clearance 0 mL/min (70-130); Calcium 8.4 mg/dL (7.8-10.44); Carbon Dioxide 29 mmol/L (23-31); Chloride 106 mmol/L (98-107); Estimated GFR-MDRD Greater than 90; Globulin 3.7 g/dL (2.4-3.5); Glucose 96 mg/dL (83-110); Potassium 3.8 mmol/L (3.5-5.1); Protein, Total 7.2 g/dL (5.8-8.1); Sodium 140 mmol/L (136-145)
--- NOTE | 2020-05-23 19:24 | CT ---
EXAM: CT brain without contrast HISTORY: Seizure-like activity and headache COMPARISON: 02/25/2020 TECHNIQUE: Multiple contiguous axial images were obtained and a CT of the brain without contrast. FINDINGS: Stable encephalomalacia seen in the left parietal and frontal lobes. There are scattered hy podensities in the subcortical and periventricular white matter consistent with small vessel ischemic disease. There is no evidence of hydrocephalus, intracranial hemorrhage, or extra-axial flui d collection. The calvarium and overlying soft tissues are unremarkable. The visualized paranasal sinuses and masto id air cells are well aerated. IMPRESSION: No evidence of acute intracranial abnormality
== END 2020-05-23 19:58 | disposition home or self-care (01) ==
LOC: ERS 18:28
DX: R51 Headache (principal); I10 Essential (primary) hypertension; J44.9 Chronic obstructive pulmonary disease, unspecified; I25.2 Old myocardial infarction; F03.90 Unspecified dementia, unspecified severity, without behavioral disturbance, psychotic disturbance, mood disturbance, and anxiety; Z86.73 Personal history of transient ischemic attack (TIA), and cerebral infarction without residual deficits; Z79.899 Other long term (current) drug therapy
CPT/HCPCS: 36415; 70450; 80053; 80177; 82550; 84146; 85025; 96365; 96375; J1200; J2765

== ENCOUNTER 2020-08-28 17:10 | Emergency (ER) | payer MEDICARE, MEDICAID ==
[2020-08-28] MEDS ORDERED: Boostrix 0.5 ML (Tdap) VIAL ONE (17:37)
[2020-08-28] MEDS ORDERED: Morphine 4 MG/ML VIAL ONE ×2 (17:37→19:08)
[2020-08-28] MEDS ORDERED: Ondansetron PF 4 MG/2 ML Vial ONE (17:37)
[2020-08-28 18:04] LABS: Hemoglobin 15.1 g/dL (14.0-18.0); Mean Corpuscular HGB CONC 33.7 g/dL (32.0-36.0); Mean Corpuscular Hemoglobin 33.1 pg (27.0-31.0); Mean Corpuscular Volume 98.4 fL (78.0-98.0); Red Blood Cell (RBC) Count 4.57 mill/uL (4.70-6.10); White Blood Cell (WBC) Count 9.5 thou/uL (4.8-10.8)
[2020-08-28 18:16] LABS: Band 1 % (5-11); Eosinophils 2 % (0-10); Large Platelets SLIGHT; Lymphocytes 25 % (21-51); MDiff Complete? YES; Mean Platelet Volume 9.7 fL (7.4-10.4); Monocytes 7 % (0-10); Neutrophil 62 % (42-75); Platelet Count 139 thou/uL (130-400); Platelet Morphology Comment Appears Adequate; RBC Morphology Normal; Reactive Lymphocytes 2 % (0-10)
[2020-08-28 19:44] LABS: Albumin 3.3 g/dL (3.4-4.8)
[2020-08-28 19:45] LABS: Chloride 107 mmol/L (98-107); Potassium 4.3 mmol/L (3.5-5.1); Sodium 139 mmol/L (136-145)
[2020-08-28 19:46] LABS: Calcium 8.1 mg/dL (7.8-10.44); Glucose 89 mg/dL (83-110)
[2020-08-28 19:47] LABS: Globulin 3.7 g/dL (2.4-3.5)
[2020-08-28 19:48] LABS: Anion Gap 11 mmol/L (10-20); Bilirubin, Total 0.7 mg/dL (0.2-1.2); Carbon Dioxide 25 mmol/L (23-31)
[2020-08-28 19:49] LABS: Alkaline Phosphatase 79 U/L (40-110)
[2020-08-28 19:50] LABS: Calc. Creatinine Clearance 0 mL/min (70-130); Estimated GFR-MDRD Greater than 90
[2020-08-28 19:51] LABS: BUN (Urea Nitrogen) 19 mg/dL (8.4-25.7)
[2020-08-28 19:52] LABS: ALT (SGPT) 15 U/L (8-55); AST (SGOT) 32 U/L (5-34)
== END 2020-08-28 19:48 | disposition short-term general hospital (02) ==
LOC: ERS 17:10
DX: T22.20XA Burn of second degree of shoulder and upper limb, except wrist and hand, unspecified site, initial encounter (principal); T21.03XA Burn of unspecified degree of upper back, initial encounter; T21.02XA Burn of unspecified degree of abdominal wall, initial encounter; T31.22 Burns involving 20-29% of body surface with 20-29% third degree burns; I10 Essential (primary) hypertension; E78.5 Hyperlipidemia, unspecified; J44.9 Chronic obstructive pulmonary disease, unspecified; I25.2 Old myocardial infarction; F03.90 Unspecified dementia, unspecified severity, without behavioral disturbance, psychotic disturbance, mood disturbance, and anxiety; Z79.899 Other long term (current) drug therapy; Z86.73 Personal history of transient ischemic attack (TIA), and cerebral infarction without residual deficits; Z23 Encounter for immunization; X15.0XXA Contact with hot stove (kitchen), initial encounter
CPT/HCPCS: 36415; 80053; 85025; 90471; 90715; 93005; 96374; 96375; 96376; J2270; J2405

== ENCOUNTER 2020-12-20 15:27 | Emergency (ER) | payer MEDICARE, MEDICAID ==
[2020-12-20 17:27] LABS: #Eosinphils 0.2 thou/uL (0.0-0.7); #Lymphocytes 2.4 thou/uL (1.20-3.40); #Monocytes 0.6 thou/uL (0.11-0.59); %Basophils 0.5 % (0.0-1.0); %Eosinophils 2.8 % (0.0-10.0); %Lymphocytes 32.8 % (21.0-51.0); %Monocytes 8.3 % (0.0-10.0); %Neutrophils 55.5 % (42.0-75.0); Hemoglobin 14.8 g/dL (14.0-18.0); Mean Corpuscular HGB CONC 30.9 g/dL (32.0-36.0); Mean Platelet Volume 7.8 fL (7.4-10.4); Platelet Count 186 thou/uL (130-400); RBC Distribution Width 12.1 % (11.5-14.5); Red Blood Cell (RBC) Count 4.75 mill/uL (4.70-6.10); White Blood Cell (WBC) Count 7.2 thou/uL (4.8-10.8)
[2020-12-20 17:48] LABS: ALT (SGPT) 9 U/L (8-55); AST (SGOT) 11 U/L (5-34); Acetaminophen Less than 6.0 mcg/mL (10.0-30.0); Albumin 3.5 g/dL (3.4-4.8); Alcohol Less than 10 mg/dL (Less than 10); Alkaline Phosphatase 91 U/L (40-110); Anion Gap 11 mmol/L (10-20); BUN (Urea Nitrogen) 21 mg/dL (8.4-25.7); Bilirubin, Total 0.6 mg/dL (0.2-1.2); Calc. Creatinine Clearance 0 mL/min (70-130); Carbon Dioxide 28 mmol/L (23-31); Chloride 105 mmol/L (98-107); Globulin 4.7 g/dL (2.4-3.5); Glucose 88 mg/dL (83-110); Potassium 4.3 mmol/L (3.5-5.1); Protein, Total 8.2 g/dL (5.8-8.1); Salicylate Less than 8.0 mg/dL (15.0-30.0); Sodium 140 mmol/L (136-145)
[2020-12-20 18:48] LABS: Bilirubin Negative (Negative); Blood, Urine 3+ (Negative); Clarity Clear (Clear); Glucose, Urine (Dipstick) Normal (Negative); Ketone, Urine Negative (Negative); Leukocyte 500 Leu/uL (Negative); Nitrite Negative (Negative); Protein, Urine (Dipstick) 20 mg/dL (Neg-Trace); RBC/HPF Greater than 50 HPF (0-3); Specific Gravity, Urine 1.029 (1.002-1.036); Squamous Epithelial None Seen HPF (0-3); Urobilinogen Normal mg/dL (Less than 2); WBC/HPF Greater than 50 HPF (0-3); pH, Urine 5.5 (5.0-9.0)
[2020-12-20 18:49] LABS: Bacteria/HPF 1+ HPF (None Seen)
== END 2020-12-20 21:55 | disposition home or self-care (01) ==
LOC: ERS 15:27
DX: N39.0 Urinary tract infection, site not specified (principal); R41.82 Altered mental status, unspecified; I10 Essential (primary) hypertension; E78.5 Hyperlipidemia, unspecified; J44.9 Chronic obstructive pulmonary disease, unspecified; I25.2 Old myocardial infarction; Z79.899 Other long term (current) drug therapy
CPT/HCPCS: 36415; 51701; 70450; 80053; 80307; 81003; 81015; 82140; 84443; 85025; 93005

== ENCOUNTER 2021-10-20 20:19 | Inpatient (IN) | payer MEDICARE, MEDICAID ==
[2021-10-20 21:18] LABS: #Eosinphils 0.2 thou/uL (0.0-0.7); #Lymphocytes 1.5 thou/uL (1.20-3.40); #Monocytes 0.6 thou/uL (0.11-0.59); #Neutrophils 5.9 thou/uL (1.40-6.50); %Eosinophils 1.8 % (0.0-10.0); %Lymphocytes 18.5 % (21.0-51.0); %Monocytes 6.9 % (0.0-10.0); %Neutrophils 72.7 % (42.0-75.0); Mean Corpuscular HGB CONC 31.8 g/dL (32.0-36.0); Mean Platelet Volume 6.5 fL (7.4-10.4); Platelet Count 384 thou/uL (130-400); RBC Distribution Width 11.4 % (11.5-14.5); Red Blood Cell (RBC) Count 4.38 mill/uL (4.70-6.10); White Blood Cell (WBC) Count 8.2 thou/uL (4.8-10.8)
[2021-10-20 21:39] LABS: ALT (SGPT) 12 U/L (8-55); AST (SGOT) 19 U/L (5-34); Albumin 3.1 g/dL (3.4-4.8); Alkaline Phosphatase 83 U/L (40-110); Anion Gap 17 mmol/L (10-20); BUN (Urea Nitrogen) 10 mg/dL (8.4-25.7); Bilirubin, Total 0.8 mg/dL (0.2-1.2); Calc. Creatinine Clearance 0 mL/min (70-130); Calcium 8.9 mg/dL (7.8-10.44); Carbon Dioxide 24 mmol/L (23-31); Chloride 102 mmol/L (98-107); Globulin 5.8 g/dL (2.4-3.5); Glucose 102 mg/dL (83-110); Potassium 3.8 mmol/L (3.5-5.1); Protein, Total 8.9 g/dL (5.8-8.1); Sodium 139 mmol/L (136-145)
[2021-10-20] MEDS ORDERED: Ondansetron PF 4 MG/2 ML Vial ONE (21:57)
[2021-10-20] MEDS ORDERED: Morphine 4 MG/ML VIAL ONE (21:57)
[2021-10-21 00:12] LABS: Bilirubin Small (Negative); Blood, Urine Trace (Negative); Glucose, Urine (Dipstick) Negative (Negative); Ketone, Urine Trace mg/dL (Negative); Leukocyte Trace (Negative); Nitrite Negative (Negative); Protein, Urine (Dipstick) Trace mg/dL (Neg-Trace); pH, Urine 5.5 (5.0-9.0)
[2021-10-21 00:19] LABS: Clarity Hazy (Clear)
[2021-10-21 00:22] LABS: Bacteria/HPF 4+ HPF (None Seen)
[2021-10-21 00:26] LABS: Lactic Acid 2.4 mmol/L (0.5-2.2)
[2021-10-21] MEDS ORDERED: cefTRIAXone\\ROCEPHIN 1 GM VIAL ONE (01:37)
[2021-10-21] MEDS ORDERED: Enoxaparin Sodium 30 MG/0.3 ML SYRINGE SC SCH (02:45)
[2021-10-21] MEDS ORDERED: Vancomycin 1 GM/200 ML BAG ONE (02:59)
[2021-10-21 05:34] LABS: #Eosinphils 0.2 thou/uL (0.0-0.7); #Lymphocytes 1.7 thou/uL (1.20-3.40); #Monocytes 1.1 thou/uL (0.11-0.59); #Neutrophils 6.4 thou/uL (1.40-6.50); %Lymphocytes 17.9 % (21.0-51.0); %Monocytes 11.4 % (0.0-10.0); %Neutrophils 68.7 % (42.0-75.0); Mean Corpuscular HGB CONC 31.9 g/dL (32.0-36.0); Mean Corpuscular Hemoglobin 31.8 pg (27.0-31.0); Mean Corpuscular Volume 99.7 fL (78.0-98.0); Mean Platelet Volume 6.6 fL (7.4-10.4); Platelet Count 325 thou/uL (130-400); RBC Distribution Width 11.2 % (11.5-14.5); Red Blood Cell (RBC) Count 4.09 mill/uL (4.70-6.10); White Blood Cell (WBC) Count 9.3 thou/uL (4.8-10.8)
[2021-10-21 05:59] LABS: BUN (Urea Nitrogen) 9 mg/dL (8.4-25.7); Calc. Creatinine Clearance 0 mL/min (70-130); Calcium 8.3 mg/dL (7.8-10.44); Carbon Dioxide 24 mmol/L (23-31); Chloride 105 mmol/L (98-107); Glucose 115 mg/dL (83-110); Potassium 3.7 mmol/L (3.5-5.1); Sodium 139 mmol/L (136-145)
[2021-10-21 06:46] LABS: Anion Gap 14 mmol/L (10-20)
[2021-10-21 06:57] VITALS: BMI 16.3
[2021-10-21] MEDS: Lactated Ringer's 1,000 ML IV SCH ×3 (08:08→23:20)
[2021-10-21] MEDS: Amlodipine 5 MG TAB PO SCH (08:44)
[2021-10-21] MEDS: levETIRAcetam 500 MG TAB PO SCH ×2 (08:46→21:10)
[2021-10-21] MEDS: Aspirin 81 mg Enteric Coated Tablet PO SCH (08:48)
[2021-10-21] MEDS: FLUoxetine HCl 20 MG CAP PO SCH (08:48)
[2021-10-21] MEDS ORDERED: Non-Formulary Item 1 EACH (Levetiracetam [Keppra] 750 MG Tablet) PO SCH (09:00)
[2021-10-21] MEDS ORDERED: Lisinopril 10 MG TAB PO SCH (09:00)
[2021-10-21 16:33] LABS: SARS-CoV-2 PCR by NAA Not Detected (NotDetected)
[2021-10-21] MEDS ORDERED: Non-Formulary Item 1 EACH (Atorvastatin Calcium [Atorvastatin Calcium] 80 MG Tablet) PO SCH (21:00)
[2021-10-21] MEDS ORDERED: Non-Formulary Item 1 EACH (Trazodone Hcl [Trazodone Hcl] 100 MG Tablet) PO SCH (21:00)
[2021-10-21] MEDS: Atorvastatin Calcium 40 MG TAB PO SCH (21:09)
[2021-10-21] MEDS: Montelukast Sodium 10 mg Tablet PO SCH (21:10)
[2021-10-21] MEDS: Acetaminophen 325 MG TAB PO PRN (21:10)
[2021-10-21] MEDS: traZODone HCl 50 MG TAB PO SCH (21:10)
[2021-10-22] MEDS: cefTRIAXone\\ROCEPHIN 1 GM in Sodium Chloride 0.9% 100 ML IVPB SCH (02:47)
[2021-10-22 04:09] LABS: #Eosinphils 0.2 thou/uL (0.0-0.7); #Lymphocytes 1.5 thou/uL (1.20-3.40); #Monocytes 0.7 thou/uL (0.11-0.59); #Neutrophils 5.8 thou/uL (1.40-6.50); %Basophils 0.1 % (0.0-1.0); %Eosinophils 1.9 % (0.0-10.0); %Lymphocytes 18.5 % (21.0-51.0); %Monocytes 8.2 % (0.0-10.0); %Neutrophils 71.3 % (42.0-75.0); Hemoglobin 12.9 g/dL (14.0-18.0); Mean Corpuscular HGB CONC 32.3 g/dL (32.0-36.0); Mean Corpuscular Hemoglobin 31.9 pg (27.0-31.0); Mean Corpuscular Volume 98.6 fL (78.0-98.0); Platelet Count 358 thou/uL (130-400); RBC Distribution Width 11.2 % (11.5-14.5); Red Blood Cell (RBC) Count 4.06 mill/uL (4.70-6.10); White Blood Cell (WBC) Count 8.2 thou/uL (4.8-10.8)
[2021-10-22 04:36] LABS: Anion Gap 14 mmol/L (10-20); BUN (Urea Nitrogen) 7 mg/dL (8.4-25.7); Calc. Creatinine Clearance 81 mL/min (70-130); Calcium 8.6 mg/dL (7.8-10.44); Carbon Dioxide 22 mmol/L (23-31); Chloride 105 mmol/L (98-107); Glucose 89 mg/dL (83-110); Potassium 4.3 mmol/L (3.5-5.1); Sodium 137 mmol/L (136-145)
[2021-10-22] MEDS: Amlodipine 5 MG TAB PO SCH ×2 (08:54→17:23)
[2021-10-22] MEDS: Aspirin 81 mg Enteric Coated Tablet PO SCH (08:55)
[2021-10-22] MEDS: FLUoxetine HCl 20 MG CAP PO SCH (08:55)
[2021-10-22] MEDS: levETIRAcetam 500 MG TAB PO SCH ×2 (08:55→20:23)
[2021-10-22] MEDS: Folic Acid 1 MG TAB PO SCH (08:58)
[2021-10-22] MEDS: Lactated Ringer's 1,000 ML IV SCH (14:34)
[2021-10-22] MEDS: Montelukast Sodium 10 mg Tablet PO SCH (20:23)
[2021-10-22] MEDS: traZODone HCl 50 MG TAB PO SCH (20:23)
[2021-10-22] MEDS: Atorvastatin Calcium 40 MG TAB PO SCH (20:23)
[2021-10-23] MEDS: Lactated Ringer's 1,000 ML IV SCH (00:04)
[2021-10-23] MEDS ORDERED: Ketorolac Tromethamine 30 MG/ML VIAL IVP SCH ×2 (00:15→06:15)
[2021-10-23] MEDS: cefTRIAXone\\ROCEPHIN 1 GM in Sodium Chloride 0.9% 100 ML IVPB SCH (01:24)
[2021-10-23] MEDS: FLUoxetine HCl 20 MG CAP PO SCH (10:38)
[2021-10-23] MEDS: levETIRAcetam 500 MG TAB PO SCH ×2 (10:38→23:45)
[2021-10-23] MEDS: Amlodipine 5 MG TAB PO SCH (10:38)
[2021-10-23] MEDS: Aspirin 81 mg Enteric Coated Tablet PO SCH (10:38)
[2021-10-23] MEDS: Folic Acid 1 MG TAB PO SCH (10:38)
[2021-10-23] MEDS: Atorvastatin Calcium 40 MG TAB PO SCH (23:45)
[2021-10-23] MEDS: Montelukast Sodium 10 mg Tablet PO SCH (23:45)
[2021-10-23] MEDS: traZODone HCl 50 MG TAB PO SCH (23:45)
[2021-10-24] MEDS: cefTRIAXone\\ROCEPHIN 1 GM in Sodium Chloride 0.9% 100 ML IVPB SCH (02:00)
[2021-10-24 06:19] LABS: #Eosinphils 0.1 thou/uL (0.0-0.7); #Lymphocytes 1.3 thou/uL (1.20-3.40); #Monocytes 0.7 thou/uL (0.11-0.59); #Neutrophils 5.8 thou/uL (1.40-6.50); %Basophils 0.2 % (0.0-1.0); %Eosinophils 1.2 % (0.0-10.0); %Monocytes 8.3 % (0.0-10.0); %Neutrophils 73.4 % (42.0-75.0); Hemoglobin 12.7 g/dL (14.0-18.0); Mean Corpuscular HGB CONC 33.5 g/dL (32.0-36.0); Mean Corpuscular Hemoglobin 32.9 pg (27.0-31.0); Mean Corpuscular Volume 98.1 fL (78.0-98.0); Mean Platelet Volume 6.6 fL (7.4-10.4); Platelet Count 351 thou/uL (130-400); RBC Distribution Width 11.2 % (11.5-14.5); Red Blood Cell (RBC) Count 3.87 mill/uL (4.70-6.10); White Blood Cell (WBC) Count 7.9 thou/uL (4.8-10.8)
[2021-10-24 06:34] LABS: Anion Gap 15 mmol/L (10-20); BUN (Urea Nitrogen) 10 mg/dL (8.4-25.7); Calc. Creatinine Clearance 71 mL/min (70-130); Calcium 8.1 mg/dL (7.8-10.44); Carbon Dioxide 23 mmol/L (23-31); Chloride 101 mmol/L (98-107); Glucose 76 mg/dL (83-110); Sodium 135 mmol/L (136-145)
[2021-10-24] MEDS ORDERED: FLU VACC QS2021-22(65YR UP)/PF 240 MCG/0.7 ML SYRINGE IM ONE (09:00)
[2021-10-24] MEDS: Aspirin 81 mg Enteric Coated Tablet PO SCH (10:04)
[2021-10-24] MEDS: Folic Acid 1 MG TAB PO SCH (10:04)
[2021-10-24] MEDS: Acetaminophen 325 MG TAB PO PRN (10:04)
[2021-10-24] MEDS: levETIRAcetam 500 MG TAB PO SCH (10:05)
[2021-10-24] MEDS: Amlodipine 5 MG TAB PO SCH (10:05)
[2021-10-24] MEDS: FLUoxetine HCl 20 MG CAP PO SCH (10:05)
[2021-10-24] MEDS ORDERED: Acetaminophen 325 MG/10.15 ML UDCUP PO SCH (12:00)
[2021-10-24 12:07] VITALS: BP 139/83; TEMP 97.9
== END 2021-10-24 17:06 | DRG 689 ==
LOC: ERS 20:19 → SURG B 10-21 01:56
PROVIDERS: ADMIT Student in an Organized Health Care Education/Training Program; ATTEND Student in an Organized Health Care Education/Training Program
DX: N39.0 Urinary tract infection, site not specified (principal); E43 Unspecified severe protein-calorie malnutrition; R64 Cachexia; Z68.1 Body mass index [BMI] 19.9 or less, adult; E87.2 Acidosis; G93.49 Other encephalopathy; I10 Essential (primary) hypertension; E78.5 Hyperlipidemia, unspecified; J44.9 Chronic obstructive pulmonary disease, unspecified; F03.90 Unspecified dementia, unspecified severity, without behavioral disturbance, psychotic disturbance, mood disturbance, and anxiety; R62.7 Adult failure to thrive; L89.152 Pressure ulcer of sacral region, stage 2; L89.892 Pressure ulcer of other site, stage 2; L89.626 Pressure-induced deep tissue damage of left heel; L89.616 Pressure-induced deep tissue damage of right heel; L89.896 Pressure-induced deep tissue damage of other site; E86.0 Dehydration; D53.9 Nutritional anemia, unspecified; B96.20 Unspecified Escherichia coli [E. coli] as the cause of diseases classified elsewhere; Z20.822 Contact with and (suspected) exposure to COVID-19; Z86.73 Personal history of transient ischemic attack (TIA), and cerebral infarction without residual deficits; I25.2 Old myocardial infarction; Z79.82 Long term (current) use of aspirin; Z79.899 Other long term (current) drug therapy
CPT/HCPCS: 36415; 51701; 71045; 80048; 80053; 80177; 81003; 81015; 82607; 82746; 83605; 84145; 84484; 85025; 87040; 87077; 87086; 87186; 93005; 96365; 96367; 96375; J0696; J1650; J1885; J2270; J2405; J3370; J3490; J7120; U0003; U0005

== ENCOUNTER 2021-11-20 17:55 | Inpatient (IN) | payer MEDICARE, MEDICAID ==
[2021-11-20 19:11] LABS: #Eosinphils 0.1 thou/uL (0.0-0.7); #Lymphocytes 1.5 thou/uL (1.20-3.40); #Monocytes 0.9 thou/uL (0.11-0.59); #Neutrophils 13.1 thou/uL (1.40-6.50); %Basophils 0.1 % (0.0-1.0); %Eosinophils 0.4 % (0.0-10.0); %Lymphocytes 9.5 % (21.0-51.0); %Monocytes 5.7 % (0.0-10.0); %Neutrophils 84.3 % (42.0-75.0); Hemoglobin 11.3 g/dL (14.0-18.0); Mean Corpuscular Hemoglobin 32.4 pg (27.0-31.0); Mean Platelet Volume 6.4 fL (7.4-10.4); Platelet Count 351 thou/uL (130-400); RBC Distribution Width 12.2 % (11.5-14.5); White Blood Cell (WBC) Count 15.6 thou/uL (4.8-10.8)
[2021-11-20 19:35] LABS: ALT (SGPT) 17 U/L (8-55); AST (SGOT) 29 U/L (5-34); Albumin 2.7 g/dL (3.4-4.8); Alkaline Phosphatase 83 U/L (40-110); Anion Gap 15 mmol/L (10-20); BUN (Urea Nitrogen) 41 mg/dL (8.4-25.7); Bilirubin, Total 0.9 mg/dL (0.2-1.2); CK (CPK) 655 U/L (30-200); Calc. Creatinine Clearance 0 mL/min (70-130); Calcium 8.6 mg/dL (7.8-10.44); Carbon Dioxide 27 mmol/L (23-31); Chloride 101 mmol/L (98-107); Globulin 5.2 g/dL (2.4-3.5); Glucose 106 mg/dL (83-110); Potassium 5.1 mmol/L (3.5-5.1); Protein, Total 7.9 g/dL (5.8-8.1); Sodium 138 mmol/L (136-145)
[2021-11-20] MEDS ORDERED: Piperacillin/Tazobactam 4.5 GM VIAL ONE (20:19)
[2021-11-20] MEDS ORDERED: Vancomycin 1 GM/200 ML BAG ONE (21:40)
[2021-11-21] MEDS: Lactated Ringer's 1,000 ML IV SCH ×2 (01:20→16:51)
[2021-11-21] MEDS: Piperacillin/Tazobactam 3.375 GM in Sodium Chloride 0.9% 100 ML IVPB SCH ×3 (01:25→16:39)
[2021-11-21] MEDS: Morphine 4 MG/ML VIAL SLOW IVP PRN ×4 (01:26→16:34)
[2021-11-21] MEDS ORDERED: Vancomycin 1 GM in Premix Bag 1 BAG IVPB SCH (02:15)
[2021-11-21 02:22] VITALS: BMI 14.8
[2021-11-21 03:21] LABS: SARS-CoV-2 NAA Rapid Test Not Detected (NotDetected)
[2021-11-21] MEDS ORDERED: Piperacillin/Tazobactam 4.5 GM in Sodium Chloride 0.9% 100 ML IVPB SCH (06:00)
[2021-11-21] MEDS ORDERED: Enoxaparin Sodium 40 MG/0.4 ML SYRINGE SC SCH (09:00)
[2021-11-21] MEDS: Pantoprazole 40 MG VIAL IVP SCH (09:42)
[2021-11-21] MEDS: Polyethylene Glycol 3350 17 GM Packet PO SCH (09:43)
[2021-11-21] MEDS ORDERED: VANCOMYCIN 2 GRAM/400 ML BAG 2 GM in Premix Bag 1 BAG IVPB SCH (21:00)
[2021-11-22] MEDS: Piperacillin/Tazobactam 3.375 GM in Sodium Chloride 0.9% 100 ML IVPB SCH ×3 (01:43→17:13)
[2021-11-22] MEDS: Morphine 4 MG/ML VIAL SLOW IVP PRN (04:57)
[2021-11-22] MEDS: Polyethylene Glycol 3350 17 GM Packet PO SCH (07:31)
[2021-11-22] MEDS: Lactated Ringer's 1,000 ML IV SCH ×2 (07:32→17:13)
[2021-11-22] MEDS ORDERED: Morphine 4 MG/ML VIAL SLOW IVP PRN (08:16)
[2021-11-22] MEDS: Pantoprazole 40 MG VIAL IVP SCH (09:09)
[2021-11-22] MEDS ORDERED: VANCOMYCIN 2 GRAM/400 ML BAG 2 GM in Premix Bag 1 BAG IVPB SCH ×2 (11:30→21:00)
[2021-11-23] MEDS: Piperacillin/Tazobactam 3.375 GM in Sodium Chloride 0.9% 100 ML IVPB SCH ×3 (01:32→18:00)
[2021-11-23] MEDS: Polyethylene Glycol 3350 17 GM Packet PO SCH (10:06)
[2021-11-23] MEDS: Lactated Ringer's 1,000 ML IV SCH ×2 (12:14→23:55)
[2021-11-24 08:04] VITALS: BP 146/74; TEMP 98.1
[2021-11-24] MEDS: Lactated Ringer's 1,000 ML IV SCH (08:46)
[2021-11-24] MEDS: Polyethylene Glycol 3350 17 GM Packet PO SCH (09:00)
== END 2021-11-24 11:10 | disposition hospice, home (50) | DRG 177 ==
LOC: ERS 17:55 → SURG B 22:42
PROVIDERS: ADMIT Family Medicine; ATTEND Family Medicine
DX: J69.0 Pneumonitis due to inhalation of food and vomit (principal); E43 Unspecified severe protein-calorie malnutrition; R64 Cachexia; Z66 Do not resuscitate; Z51.5 Encounter for palliative care; Z68.1 Body mass index [BMI] 19.9 or less, adult; J44.0 Chronic obstructive pulmonary disease with (acute) lower respiratory infection; Z20.822 Contact with and (suspected) exposure to COVID-19; L89.90 Pressure ulcer of unspecified site, unspecified stage; F03.90 Unspecified dementia, unspecified severity, without behavioral disturbance, psychotic disturbance, mood disturbance, and anxiety; R47.1 Dysarthria and anarthria; R13.10 Dysphagia, unspecified; D53.9 Nutritional anemia, unspecified; I10 Essential (primary) hypertension; E78.5 Hyperlipidemia, unspecified; Z86.73 Personal history of transient ischemic attack (TIA), and cerebral infarction without residual deficits; Z79.82 Long term (current) use of aspirin; Z79.899 Other long term (current) drug therapy; I25.2 Old myocardial infarction
CPT/HCPCS: 36415; 70450; 71045; 80053; 82550; 83605; 85025; 87040; 87070; 87205; 93005; 94760; 96365; 96367; C9113; J1650; J2270; J2543; J3370; J3490; J7120; U0002